=== PATIENT | female | born 1970 | race Caucasian/White ===

== ENCOUNTER → 2016-06-26 | Outpatient (CLI) | payer BC | END | disposition home or self-care (01) | LOC: RADMAMWWP 14:08 | PROVIDERS: ATTEND Obstetrics & Gynecology | DX: Z53.9 Procedure and treatment not carried out, unspecified reason (principal) ==

== ENCOUNTER 2016-09-06 19:28 | Observation (INO) | payer BC ==
[2016-09-06] MEDS ORDERED: diphenhydrAMINE 50 MG/ML 1 ML VIAL IVP STA (19:51)
[2016-09-06] MEDS ORDERED: ONDANSETRON 4 MG/2 ML VIAL IVP STA (19:51)
[2016-09-06] MEDS ORDERED: HYDROmorphone 1 MG/ML 1 ML SYRINGE IVP STA (19:51)
[2016-09-06] MEDS ORDERED: methylPREDNISolone SOD SUCCI 125 MG/2 ML VIAL IV STA (19:51)
[2016-09-06] MEDS ORDERED: FAMOTIDINE 20 MG/2 ML VIAL IV STA (19:51)
[2016-09-06] MEDS ORDERED: SODIUM CHLORIDE 0.9% 1,000 ML IV STA (19:51)
--- NOTE | 2016-09-06 19:59 | ED ---
General Adult HPI - General Chief complaint: Abdominal Pain Stated complaint: Abd Pain Time Seen by Provider: 09/06/16 19:41 Source: patient, family, RN notes reviewed Mode of arrival: ambulatory Limitations: no limitations - History of Present Illness Initial comments: Chief complaint and history of present illness a 46-year-old female who has abdominal pain. Patient had her last bowel movement yesterday and hasn't passed gas since yesterday. Today when she put her arms on her abdomen when she sat down she had an acute discomfort. Since then the pains persisted. Discomfort from her rib cage to the pelvic region and left and right side of the abdomen. No nausea no vomiting no diarrhea. Patient did have Mohan-en-Y surgery 8 years ago. - Related Data Home Medications Medication Instructions Recorded Confirmed Acetaminophen/Diphenhydramine 1 tab PO HS PRN 09/06/16 09/06/16 [Tylenol PM 500-25mg] DULoxetine HCL [Cymbalta] 60 mg PO DAILY 09/06/16 09/06/16 Ferrous Sulfate [Feosol] 325 mg PO TID 09/06/16 09/06/16 traZODone HCL 50 mg PO HS 09/06/16 09/06/16 Allergies Allergy/AdvReac Type Severity Reaction Status Date / Time shellfish derived [Shellfish] Allergy Anaphylaxis Verified 09/06/16 19:44 Review of Systems ROS Statement: Those systems with pertinent positive or pertinent negative responses have been documented in the HPI. Review of systems no headache or visual acuity changes no chest pain or shortness of breath. The patient has abdominal pain causing her to cry. No nausea no vomiting no diarrhea. Pain is scattered from the epigastric region to the suprapubic region into the left and right side of the abdomen. No mild palpation causes discomfort. Voluntary guarding noted. Active bowel sounds all systems reviewed Past medical problems significant for bariatric surgery 8 years ago patient had a Mohan-en-Y procedure. Patient's surgeries include knee arthroscopy. She's also cholecystectomy tonsils and adenoids. Family history no cancers. Patient has ALLERGIES to shellfish. She has had IV dye before but she was premedicated. Nonsmoker, occasional social alcohol use. ROS Other: All systems not noted in ROS Statement are negative. Past Medical History Past Medical History: No Reported History History of Any Multi-Drug Resistant Organisms: None Reported Past Surgical History: Bariatric Surgery Past Psychological History: No Psychological Hx Reported Smoking Status: Never smoker Past Alcohol Use History: Occasional Past Drug Use History: None Reported General Exam - General Exam Comments Initial Comments: General: The patient is awake and alert, moderate distress because of abdominal cramps and pain sharp stabbing sensation. Crusted entire abdomen. Vital signs shows temperature 98.0 pulse 75 respiratory rate 20 pulse ox on percent room air blood pressure 116/63 Eye: Pupils are equal, round and reactive to light, extra-ocular movements are intact ; there is normal conjunctiva bilaterally. No signs of icterus. Ears, nose, mouth and throat: There are moist mucous membranes and no oral lesions. Neck: The neck is supple, there is no tenderness . Cardiovascular: There is a regular rate and rhythm. No murmur, rub or gallop is appreciated. Respiratory: Lungs are clear to auscultation, respirations are non-labored, breath sounds are equal. No wheezes, stridor, rales, or rhonchi. Gastrointestinal: High tinkling sounds all around the abdomen. Tender with even mild palpation regardless of where you push. Voluntary guarding. No complaint of nausea vomiting or diarrhea Back: No complaint of back pain. Musculoskeletal: Normal ROM, no tenderness, There is no pedal edema. There is no calf tenderness or swelling. Sensation intact. v Neurological: No neuro deficits Skin: Skin is warm and dry and no rashes or lesions are noted. Tattoo left lateral calf Limitations: no limitations Course Vital Signs 09/06/16 09/06/16 09/06/16 19:30 20:34 22:00 Temperature 98 F 98.1 F Pulse Rate 75 78 Respiratory 20 16 18 Rate Blood Pressure 116/63 115/74 O2 Sat by Pulse 100 99 Oximetry 09/06/16 09/06/16 09/06/16 22:56 23:31 23:59 Temperature Pulse Rate 77 73 Respiratory 16 16 17 Rate Blood Pressure 116/77 105/65 O2 Sat by Pulse 98 99 Oximetry Medical Decision Making - Medical Decision Making Medical decision-making. The patient is here for acute abdominal pain. Labs show white count of 6.5 hemoglobin 9.6 hematocrit 33. Indices show evidence of anemia which the patient is being treated for. The patient's INR 1.1 potassium 4.6 with a BUN 11 creatinine 0.9 the GFR greater than 60. Glucose 80. Amylase / lipase within normal limits. Trays of the abdomen done and reviewed by radiologist his impression is there is no sign of intestinal obstruction or pneumoperitoneum. Fecal pattern is normal. There are clips from cholecystectomy. There are no pathologic calcifications over the kidneys. There is no sign of a mass. Lung bases are clear. Impression nonacute abdomen. As read by Dr. Fregsoo FH test the patient was reexamined and the discomfort became slightly less each time. Patient had a CT of the abdomen with IV and oral contrast she was premedicated. The patient's CT was interpreted by radiologist and her impression is #1; postsurgical changes of Mohan-en-Y gastric bypass surgery. Mild wall thickening versus under distention of the maria c-enteric anastomosis. No additional small bowel wall thickening. No evidence of small bowel obstruction or free air. Cecum located in the left upper quadrant possibly due to mobile cecum with internal hernia not excluded. 3 small hiatal hernia. Number for cholecystectomy. As read by Dr. Roca Examination after this was shared with the patient finds mild discomfort. No guarding no rebound. The patient will be admitted continued IV hydration and medications as directed for control of nausea and discomfort. The case is discussed with on-call general surgeon Dr. Aj. Patient be admitted his service. - Lab Data Result diagrams: 09/06/16 20:25 09/06/16 20:25 Lab Results 09/06/16 09/06/16 09/06/16 Range/Units 20:25 20:25 20:25 WBC 6.5 (3.8-10.6) k/uL RBC 4.27 (3.80-5.40) m/uL Hgb 9.6 L (11.4-16.0) gm/dL Hct 33.3 L (34.0-46.0) % MCV 78.1 L (80.0-100.0) fL MCH 22.5 L (25.0-35.0) pg MCHC 28.9 L (31.0-37.0) g/dL RDW 23.2 H (11.5-15.5) % Plt Count 396 (150-450) k/uL Neutrophils % 62 % Lymphocytes % 27 % Monocytes % 6 % Eosinophils % 1 % Basophils % 1 % Neutrophils # 4.1 (1.3-7.7) k/uL Lymphocytes # 1.7 (1.0-4.8) k/uL Monocytes # 0.4 (0-1.0) k/uL Eosinophils # 0.1 (0-0.7) k/uL Basophils # 0.1 (0-0.2) k/uL Hypochromasia Marked Anisocytosis Moderate Microcytosis Moderate PT (9.0-12.0) sec INR (<1.1) Sodium 138 (137-145) mmol/L Potassium 4.6 (3.5-5.1) mmol/L Chloride 103 (98-107) mmol/L Carbon Dioxide 22 (22-30) mmol/L Anion Gap 13 mmol/L BUN 11 (7-17) mg/dL Creatinine 0.90 (0.52-1.04) mg/dL Est GFR (MDRD) Af Amer >60 (>60 ml/min/1.73 sqM) Est GFR (MDRD) Non-Af >60 (>60 ml/min/1.73 sqM) Glucose 80 (74-99) mg/dL Plasma Lactic Acid Andi 0.7 (0.7-2.0) mmol/L Calcium 9.1 (8.4-10.2) mg/dL Total Bilirubin 0.2 (0.2-1.3) mg/dL AST 29 (14-36) U/L ALT 37 (9-52) U/L Alkaline Phosphatase 84 (38-126) U/L Total Protein 7.3 (6.3-8.2) g/dL Albumin 4.4 (3.5-5.0) g/dL Amylase 91 (30-110) U/L Lipase 239 (23-300) U/L Urine Color Urine Appearance (Clear) Urine pH (5.0-8.0) Ur Specific Mathews (1.001-1.035) Urine Protein (Negative) Urine Glucose (UA) (Negative) Urine Ketones (Negative) Urine Blood (Negative) Urine Nitrite (Negative) Urine Bilirubin (Negative) Urine Urobilinogen (<2.0) mg/dL Ur Leukocyte Esterase (Negative) 09/06/16 09/06/16 Range/Units 20:25 22:10 WBC (3.8-10.6) k/uL RBC (3.80-5.40) m/uL Hgb (11.4-16.0) gm/dL Hct (34.0-46.0) % MCV (80.0-100.0) fL MCH (25.0-35.0) pg MCHC (31.0-37.0) g/dL RDW (11.5-15.5) % Plt Count (150-450) k/uL Neutrophils % % Lymphocytes % % Monocytes % % Eosinophils % % Basophils % % Neutrophils # (1.3-7.7) k/uL Lymphocytes # (1.0-4.8) k/uL Monocytes # (0-1.0) k/uL Eosinophils # (0-0.7) k/uL Basophils # (0-0.2) k/uL Hypochromasia Anisocytosis Microcytosis PT 10.6 (9.0-12.0) sec INR 1.1 (<1.1) Sodium (137-145) mmol/L Potassium (3.5-5.1) mmol/L Chloride (98-107) mmol/L Carbon Dioxide (22-30) mmol/L Anion Gap mmol/L BUN (7-17) mg/dL Creatinine (0.52-1.04) mg/dL Est GFR (MDRD) Af Amer (>60 ml/min/1.73 sqM) Est GFR (MDRD) Non-Af (>60 ml/min/1.73 sqM) Glucose (74-99) mg/dL Plasma Lactic Acid Andi (0.7-2.0) mmol/L Calcium (8.4-10.2) mg/dL Total Bilirubin (0.2-1.3) mg/dL AST (14-36) U/L ALT (9-52) U/L Alkaline Phosphatase (38-126) U/L Total Protein (6.3-8.2) g/dL Albumin (3.5-5.0) g/dL Amylase (30-110) U/L Lipase (23-300) U/L Urine Color Light Yellow Urine Appearance Clear (Clear) Urine pH 5.5 (5.0-8.0) Ur Specific Mathews 1.006 (1.001-1.035) Urine Protein Negative (Negative) Urine Glucose (UA) Negative (Negative) Urine Ketones Negative (Negative) Urine Blood Negative (Negative) Urine Nitrite Negative (Negative) Urine Bilirubin Negative (Negative) Urine Urobilinogen <2.0 (<2.0) mg/dL Ur Leukocyte Esterase Negative (Negative) Disposition Clinical Impression: Abdominal pain Disposition: ADMITTED IP TO THIS HOSP Condition: Fair Referrals: Silvino Hobson DO [Primary Care Provider] - 1-2 days
[2016-09-06 20:39] LABS: Anisocytosis Moderate; Basophils # (A) 0.1 k/uL (0-0.2); Basophils % (A) 1 %; CH 22.6; Eosinophils # (A) 0.1 k/uL (0-0.7); Eosinophils % (A) 1 %; HCT 33.3 % (34.0-46.0); HDW 2.94; HGB 9.6 gm/dL (11.4-16.0); Hypochromasia Marked; Luc # (Auto) 0.18; Luc % (Auto) 3; Lymphocytes # (A) 1.7 k/uL (1.0-4.8); Lymphocytes % (A) 27 %; MCH 22.5 pg (25.0-35.0); MCHC 28.9 g/dL (31.0-37.0); MCV 78.1 fL (80.0-100.0); Mean Platelet Volume 6.2; Microcytosis Moderate; Monocytes # (A) 0.4 k/uL (0-1.0); Monocytes % (A) 6 %; Neutrophils # (A) 4.1 k/uL (1.3-7.7); Neutrophils % (A) 62 %; RBC 4.27 m/uL (3.80-5.40); RDW 23.2 % (11.5-15.5); WBC 6.5 k/uL (3.8-10.6); WBC (Perox) 6.14
[2016-09-06 20:55] LABS: ALT 37 U/L (9-52); AST 29 U/L (14-36); Alkaline Phosphatase 84 U/L (38-126); Amylase 91 U/L (30-110); Anion Gap 13 mmol/L; Blood Urea Nitrogen 11 mg/dL (7-17); Calcium 9.1 mg/dL (8.4-10.2); Carbon Dioxide 22 mmol/L (22-30); Chloride 103 mmol/L (98-107); Glucose 80 mg/dL (74-99); Non-African American GFR(MDRD) >60 (>60 ml/min/1.73 sqM); Potassium 4.6 mmol/L (3.5-5.1); Sodium 138 mmol/L (137-145); Total Bilirubin 0.2 mg/dL (0.2-1.3); Total Protein 7.3 g/dL (6.3-8.2)
--- NOTE | 2016-09-06 20:55 | XR ---
EXAMINATION TYPE: XR abdomen complete w decub DATE OF EXAM: 09/06/2016 COMPARISON: NONE HISTORY: Abdominal pain TECHNIQUE: Supine, upright, and left side down lateral decubitus views of the abdomen are obtained. FINDINGS: There is no sign of intestinal obstruction or pneumoperitoneum. Fecal pattern is normal. There are cl ips from cholecystectomy. There are no pathologic calcifications over the kidneys. There is no sign o f a mass. Lung bases are clear. IMPRESSION: Nonacute abdomen
[2016-09-06 21:06] LABS: INR 1.1 (<1.1); Prothrombin Time 10.6 sec (9.0-12.0)
[2016-09-06] MEDS ORDERED: RX INFO: IV CONTRAST WAS GIVEN 1 EACH MISC MISCELLANE PRN (21:37)
[2016-09-06] MEDS ORDERED: BARIUM SULFATE 450 ML ORAL.SUSP BOTTLE PO PRN (21:37)
[2016-09-06 22:27] LABS: Appearance,Urine Clear (Clear); Bilirubin,Urine Negative (Negative); Glucose,Urine (UA) Negative (Negative); Ketones,Urine Negative (Negative); Leukocyte Esterase,Urine Negative (Negative); Nitrite,Urine Negative (Negative); PH, Urine 5.5 (5.0-8.0); Protein,Urine Negative (Negative); Specific Gravity,Urine 1.006 (1.001-1.035); UA Billing (MACRO vs. MICRO) CHEM; Urobilinogen,Urine <2.0 mg/dL (<2.0)
--- NOTE | 2016-09-07 00:43 | CT ---
EXAM: CT Abdomen and Pelvis With Intravenous Contrast CLINICAL HISTORY: Abdominal pain, history Mohan-en-Y. TECHNIQUE: Axial computed tomography images of the abdomen and pelvis with intravenous and oral contrast. Coronal and sagittal reformatted images were created and reviewed. Delayed images were obtained. DOSE INFORMATION: CTDI is 19.50 mGy and DLP is 1415.60 mGy-cm. This CT exam was performed using one or more of the following dose reduction techniques: automated exposure control, adjustment of the mA and/or kV according to patient size, and/or use of iterative reconstruction technique. CONTRAST: 100 mL of Omnipaque 300 administered intravenously. COMPARISON: No relevant prior studies available. FINDINGS: Lower thorax: Small hiatal hernia. Otherwise unremarkable. ABDOMEN: Liver: Unremarkable. No mass. Gallbladder and bile ducts: Cholecystectomy. No biliary ductal dilation. Pancreas: Unremarkable. No ductal dilation. No mass. No adjacent inflammatory changes. Spleen: Unremarkable. No splenomegaly. Adrenals: Unremarkable. No mass. Kidneys and ureters: Unremarkable. No hydronephrosis or ureteral calculus. No solid mass. Stomach and bowel: Postsurgical changes of Mohan-en-Y gastric bypass surgery. No contrast in the excluded portion of the stomach. No evidence of transition point to suggest small bowel obstruction. Mild thickening versus underdistention at the enteroenteric anastomosis. No additional bowel wall thickening. Cecum located in the left upper quadrant. No pneumatosis. Appendix: Appendix not visualized. PELVIS: Bladder: Unremarkable. No mass or wall thickening. Reproductive: Unremarkable as visualized. ABDOMEN and PELVIS: Intraperitoneal space: Unremarkable. No free air. No significant fluid collection. Bones/joints: No acute fracture. No dislocation. Soft tissues: Unremarkable. Vasculature: Unremarkable. No aortic aneurysm. Lymph nodes: Unremarkable. No enlarged lymph nodes. IMPRESSION: 1. Postsurgical changes of Mohan-en-Y gastric bypass surgery. Mild wall thickening versus underdistention at the enteroenteric anastomosis. No additional bowel wall thickening. No evidence of small bowel obstruction or free air. 2. Cecum located in the left upper quadrant possibly due to mobile cecum with internal hernia not excluded. 3. Small hiatal hernia. 4. Cholecystectomy.
[2016-09-07] MEDS ORDERED: NALOXONE 0.4 MG/ML 1 ML VIAL IV PRN (01:05)
[2016-09-07] MEDS ORDERED: ONDANSETRON 4 MG/2 ML VIAL IVP PRN (01:05)
[2016-09-07] MEDS: SODIUM CHLORIDE 0.9% 1,000 ML IV SCH ×3 (01:33→17:30)
[2016-09-07] MEDS: HYDROmorphone 1 MG/ML 1 ML SYRINGE IV PRN ×2 (01:36→20:07)
[2016-09-07 02:14] VITALS: BMI 35.9
[2016-09-07] MEDS ORDERED: diphenhydrAMINE 25 MG CAP PO PRN (08:54)
[2016-09-07] MEDS ORDERED: MAGNESIUM CITRATE 296 ML BOTTLE PO ONE ×2 (08:55→12:53)
[2016-09-07] MEDS: DULoxetine HCL 60 MG CAPSULE.DR PO SCH (09:44)
[2016-09-07] MEDS: PANTOPRAZOLE 40 MG/10 ML VIAL IV SCH (09:44)
--- NOTE | 2016-09-07 12:58 | P.GSHP ---
History of Present Illness H&P Date: 09/07/16 A 46-year-old female presented on the day of admission to the emergency room with a chief complaint of developing "intense intolerable abdominal pain. Patient stated she had not experienced this type of intense abdominal pain before became concerned. Patient stated the pain started in the mid epigastric area radiates down to the pubic area described as intense cramping. Patient stated a nausea sensation but no vomiting. No frequent stooling. Patient stated her last bowel movement was 24 hours ago which the patient stated it was a small amount of stool no blood noted had been having constipation issues after being started on iron supplement iron deficiency anemia. Patient does have a history of having 8 years prior [facility] gastric bypass surgery for morbid obesity sarah-en-y patient states she's has not had a colonoscopy in the past. In the emergency room the patient underwent a CAT scan of the abdomen pelvis with IV contrast reviewing the report it showed postsurgical changes from the gastric bypass surgery no evidence of a small bowel obstruction or free air, small hiatal hernia, cholecystectomy, cecum located in the left upper quadrant possibly due to mobile cecum with an internal hernia not excluded urinalysis negative the white count on admission 6.5 with a hemoglobin of 9.6 patient has no significant past medical history except the patient states she's been treated prior deficiency anemia and has started iron supplements per her PCPs recommendations Past surgical history bariatric surgery cholecystectomy - Review of Systems Comment: Essentially unremarkable except as mentioned in the present illness Past Medical History Past Medical History: No Reported History History of Any Multi-Drug Resistant Organisms: None Reported Past Surgical History: Bariatric Surgery, Section, Cholecystectomy, Tonsillectomy Past Anesthesia/Blood Transfusion Reactions: No Reported Reaction Past Psychological History: Anxiety Smoking Status: Never smoker Past Alcohol Use History: Occasional Past Drug Use History: None Reported Medications and Allergies Home Medications Medication Instructions Recorded Confirmed Type Acetaminophen/Diphenhydramine 1 tab PO HS PRN 09/06/16 09/06/16 History [Tylenol PM 500-25mg] DULoxetine HCL [Cymbalta] 60 mg PO DAILY 09/06/16 09/06/16 History Ferrous Sulfate [Feosol] 325 mg PO TID 09/06/16 09/06/16 History traZODone HCL 50 mg PO HS 09/06/16 09/06/16 History Allergies Allergy/AdvReac Type Severity Reaction Status Date / Time shellfish derived [Shellfish] Allergy Anaphylaxis Verified 09/06/16 19:44 Surgical - Exam Vital Signs Temp Pulse Resp BP Pulse Ox 98 F 75 20 116/63 100 09/06/16 19:30 09/06/16 19:30 09/06/16 19:30 09/06/16 19:30 09/06/16 19:30 GENERAL APPEARANCE: Pleasant 46-year-old female patient is alert, oriented, in no acute distress. Patient states abdominal pain has improved it's not as intense as it was on admission. Patient did have the citrated mag no results yet states no bowel movement VITAL SIGNS: Reviewed HEENT: Head is normocephalic and atraumatic. Pupils are equal and reactive. The nares are patent. Oropharynx is clear without lesions. NECK: Supple without lymphadenopathy. Traches midline. HEART: S1, S2. Regular rate and rhythm. Denying chest pain LUNGS: No crackles or wheezes are heard. ABDOMEN: Soft, slight diffuse tenderness across the abdominal wall nondistended with good bowel sounds. No peritoneal signs. No palpable organomegaly or masses no nausea no vomiting. Patient states is not passing gas rectally no stool urinating no difficulty EXTREMITIES: Normal skin color and turgor. No cyanosis, rash, ulceration, clubbing or edema. Radial pedal pulses are 2/4 bilaterally. NEUROLOGICAL: No focal deficits. Strength and sensation are grossly intact. Results - Labs 09/06/16 20:25 09/06/16 20:25 Abnormal Lab Results - Last 24 Hours (Table) 09/06/16 Range/Units 20:25 Hgb 9.6 L (11.4-16.0) gm/dL Hct 33.3 L (34.0-46.0) % MCV 78.1 L (80.0-100.0) fL MCH 22.5 L (25.0-35.0) pg MCHC 28.9 L (31.0-37.0) g/dL RDW 23.2 H (11.5-15.5) % Diabetes panel 09/06/16 Range/Units 20:25 Sodium 138 (137-145) mmol/L Potassium 4.6 (3.5-5.1) mmol/L Chloride 103 (98-107) mmol/L Carbon Dioxide 22 (22-30) mmol/L BUN 11 (7-17) mg/dL Creatinine 0.90 (0.52-1.04) mg/dL Glucose 80 (74-99) mg/dL Calcium 9.1 (8.4-10.2) mg/dL AST 29 (14-36) U/L ALT 37 (9-52) U/L Alkaline Phosphatase 84 (38-126) U/L Total Protein 7.3 (6.3-8.2) g/dL Albumin 4.4 (3.5-5.0) g/dL Calcium panel 09/06/16 Range/Units 20:25 Calcium 9.1 (8.4-10.2) mg/dL Albumin 4.4 (3.5-5.0) g/dL Pituitary panel 09/06/16 Range/Units 20:25 Sodium 138 (137-145) mmol/L Potassium 4.6 (3.5-5.1) mmol/L Chloride 103 (98-107) mmol/L Carbon Dioxide 22 (22-30) mmol/L BUN 11 (7-17) mg/dL Creatinine 0.90 (0.52-1.04) mg/dL Glucose 80 (74-99) mg/dL Calcium 9.1 (8.4-10.2) mg/dL Adrenal panel 09/06/16 Range/Units 20:25 Sodium 138 (137-145) mmol/L Potassium 4.6 (3.5-5.1) mmol/L Chloride 103 (98-107) mmol/L Carbon Dioxide 22 (22-30) mmol/L BUN 11 (7-17) mg/dL Creatinine 0.90 (0.52-1.04) mg/dL Glucose 80 (74-99) mg/dL Calcium 9.1 (8.4-10.2) mg/dL Total Bilirubin 0.2 (0.2-1.3) mg/dL AST 29 (14-36) U/L ALT 37 (9-52) U/L Alkaline Phosphatase 84 (38-126) U/L Total Protein 7.3 (6.3-8.2) g/dL Albumin 4.4 (3.5-5.0) g/dL Assessment and Plan Plan: Impression Present on admission intractable abdominal pain unclear etiology History of chronic constipation Obesity BMI 35 History 8 years prior at [facility] gastric bypass surgery for morbid obesity sarah-en-y Present on admission anemia suspect iron deficiency on iron supplements Depressive disorder nonspecified Plan resume home meds as appropriate Repeat dose magnesium citrate 100 mL's now monitor the response IV fluid at her in our DVT and GI prophylaxis Further recommendations pending No evidence of an acute surgical abdomen The above dictated assessment and findings were discussed with dr peña . Impression and the plan of care have been dictated as directed. Roberta Arzola nurse practitioner acting as a scribe for dr peña
[2016-09-07] MEDS ORDERED: ACETAMINOPHEN TAB 325 MG TAB PO PRN (14:13)
--- NOTE | 2016-09-07 20:02 | P.PN ---
Subjective Principal diagnosis: Abdominal pain The patient is a 46-year-old female who reports in 2008 having a gastric bypass performed at [facility] by Dr. Briones. She reports poor follow-up whereby she only seen him 1 year after her initial operation. Her lowest weight 163 pounds. Height was 286 pounds. She reports weight regain. Separately she reports having a stricture which required balloon dilatation where she had intermittent dysphagia to solid foods. Today she reports recurrent symptoms of dysphagia as she has troubles with swallowing her pills. She was epigastric discomfort. Separately she reports a personal history of endometriosis for which she thought her symptoms of lower abdominal pain may be a result of. Since admission, she reports improvement of her abdominal pain. She reports "gurgling.". She is passing flatus however not moderate. I have been asked on behalf of Dr. Aj as a second opinion. Objective - Vital Signs Vital signs: Vital Signs Temp 98.5 F 09/07/16 15:43 Pulse 79 09/07/16 15:43 Resp 16 09/07/16 15:43 BP 99/54 09/07/16 15:43 Pulse Ox 98 09/07/16 15:43 Intake & Output 09/07/16 09/07/16 09/08/16 06:59 18:59 06:59 Weight 86.183 kg Other: Voiding Method Toilet # Voids 1 - Exam GENERAL: Well developed and in no acute distress. Pleasant and sitting up the chair appears comfortable. HEENT: No sclera icterus. Extraocular movements grossly intact. Moist buccal mucosa. Head is atraumatic, normocephalic. Hears conversational speech. No nasal drainage. NECK: Supple without lymphadenopathy. No JV distention. CHEST: Non-labored respirations and equal bilateral excursions. CARDIOVASCULAR: Regular rate and rhythm. Palpable 2+ radial pulses. ABDOMEN: Soft, nondistended. Mild tenderness along the bilateral lower abdomen. No peritoneal signs. MUSCULOSKELETAL: No clubbing, cyanosis or edema. NEUROLOGIC: No focal or lateralizing signs. PSYCH: Appropriate affect. Alert and oriented to person, place and time. - Labs CBC & Chem 7: 09/06/16 20:25 09/06/16 20:25 Labs: Abnormal Lab Results - Last 24 Hours (Table) 09/06/16 Range/Units 20:25 Hgb 9.6 L (11.4-16.0) gm/dL Hct 33.3 L (34.0-46.0) % MCV 78.1 L (80.0-100.0) fL MCH 22.5 L (25.0-35.0) pg MCHC 28.9 L (31.0-37.0) g/dL RDW 23.2 H (11.5-15.5) % Microbiology - Last 24 Hours (Table) 09/06/16 22:10 Urine Culture - Preliminary Urine,Voided - Imaging and Cardiology CT scan - abdomen: report reviewed, image reviewed CT scan - pelvis: report reviewed, image reviewed (No mesenteric swirl consistent with internal hernia. No free air. No bowel obstruction identified. ) Assessment and Plan (1) History of gastric bypass Status: Acute (2) Lower abdominal pain Status: Acute (3) Dysphagia Status: Acute (4) Epigastric abdominal pain Status: Acute (5) Gastrojejunal anastomotic stricture Status: Acute Plan: 1. As her symptoms are improving, recommend liquid diet preferably bariatric type. 2. With her previous history of stricture requiring balloon dilatation as well as recurrent symptoms of dysphagia, benefit from outpatient upper endoscopy with balloon dilatation. 3. I have discussed with her the importance of yearly bariatric follow-ups including potentially at [facility]. Alternatively, she is free to follow up at the [facility] bariatric center. 4. Should her abdominal pain worsen, then may benefit from a diagnostic laparoscopy however her abdominal pain is improving. 5. Recommend outpatient follow-up up including nutritional assessment.
[2016-09-07] MEDS ORDERED: traZODone HCL 50 MG TAB PO SCH (21:00)
[2016-09-08] MEDS: SODIUM CHLORIDE 0.9% 1,000 ML IV SCH (00:29)
[2016-09-08] MEDS ORDERED: ASPIRIN-ACET-CAFF 250-250-65MG 1 EACH TAB PO PRN (07:39)
[2016-09-08 07:45] LABS: Anisocytosis Moderate; Basophils % (A) 1 %; CH 22.2; CHCM 27.8; Eosinophils % (A) 1 %; HCT 29.6 % (34.0-46.0); HDW 2.87; HGB 8.6 gm/dL (11.4-16.0); Hypochromasia Marked; Luc # (Auto) 0.11; Luc % (Auto) 2; Lymphocytes # (A) 2.3 k/uL (1.0-4.8); Lymphocytes % (A) 52 %; MCH 23.1 pg (25.0-35.0); MCHC 28.9 g/dL (31.0-37.0); MCV 79.9 fL (80.0-100.0); Mean Platelet Volume 6.4; Microcytosis Moderate; Monocytes # (A) 0.2 k/uL (0-1.0); Monocytes % (A) 4 %; Neutrophils # (A) 1.8 k/uL (1.3-7.7); Neutrophils % (A) 41 %; RDW 23.2 % (11.5-15.5); WBC 4.4 k/uL (3.8-10.6); WBC (Perox) 4.46
[2016-09-08 07:47] LABS: ALT 23 U/L (9-52); AST 29 U/L (14-36); Alkaline Phosphatase 62 U/L (38-126); Anion Gap 5 mmol/L; Blood Urea Nitrogen 9 mg/dL (7-17); Calcium 7.6 mg/dL (8.4-10.2); Carbon Dioxide 24 mmol/L (22-30); Chloride 113 mmol/L (98-107); Glucose 75 mg/dL (74-99); Non-African American GFR(MDRD) >60 (>60 ml/min/1.73 sqM); Potassium 4.4 mmol/L (3.5-5.1); Sodium 142 mmol/L (137-145); Total Bilirubin 0.3 mg/dL (0.2-1.3); Total Protein 5.7 g/dL (6.3-8.2)
[2016-09-08 08:11] VITALS: RESP 14; TEMP 97.2
[2016-09-08] MEDS: PANTOPRAZOLE 40 MG/10 ML VIAL IV SCH (08:34)
[2016-09-08] MEDS: DULoxetine HCL 60 MG CAPSULE.DR PO SCH (08:34)
[2016-09-08 10:41] VITALS: BP 106/56; PULSE 65
[2016-09-08 11:48] LABS: Polychromasia Present
[2016-09-08 11:49] LABS: Manual Review Performed
--- NOTE | 2016-09-08 12:26 | P.DS ---
Providers Date of admission: 09/07/16 01:05 Expected date of discharge: 09/08/16 Attending physician: Sabine Peña Primary care physician: [facility] Course: A 46-year-old female presented on the day of admission to the emergency room with a chief complaint of developing "intense intolerable abdominal pain. Patient stated she had not experienced this type of intense abdominal pain before became concerned. Patient stated the pain started in the mid epigastric area radiates down to the pubic area described as intense cramping. Patient stated a nausea sensation but no vomiting. No frequent stooling. Patient stated her last bowel movement was 24 hours ago which the patient stated it was a small amount of stool no blood noted had been having constipation issues after being started on iron supplement iron deficiency anemia. Patient does have a history of having 8 years prior [facility] in [place] gastric bypass surgery for morbid obesity sarah-en-y patient states she's has not had a colonoscopy in the past. In the emergency room the patient underwent a CAT scan of the abdomen pelvis with IV contrast reviewing the report it showed postsurgical changes from the gastric bypass surgery no evidence of a small bowel obstruction or free air, small hiatal hernia, cholecystectomy, cecum located in the left upper quadrant possibly due to mobile cecum with an internal hernia not excluded urinalysis negative the white count on admission 6.5 with a hemoglobin of 9.6 patient has no significant past medical history except the patient states she's been treated prior deficiency anemia and has started iron supplements per her PCPs recommendations Past surgical history bariatric surgery and cholecystectomy Patient was seen this admission by Dr. Varghese for second opinion given patient's history of bariatric surgery and episodes intermittent dysphagia to solid food patient's bariatric surgery was done in 2008 at [facility] in [place] by a doctor alo Varghese indicated that patient can follow-up in the [facility] in which the patient is agreeing to follow-up with Dr. Varghese in the outpatient setting at the time of discharge patient was tolerating a full diet stated abdominal pain had significantly improved was anxious to be discharged home. felt to be hemodynamically stable and appropriate to proceed with a discharge to home Dr. Varghese did discuss with the patient the importance of yearly bariatric follow-up including potential returning to [facility]. Alternatively the patient is free to follow-up at the bariatric [facility] patient indicated that she would follow-up with Dr. Varghese patient setting Impression discharge diagnosis History of gastric bypass done in 2008 at [facility] in [place] by History of iron deficiency anemia on iron supplements Present on admission Lower abdominal pain Acute on chronic Intermittent episodes of Dysphagia with solid foods Status: Acute (4) Epigastric abdominal pain Status: Acute (5) Gastrojejunal anastomotic stricture Status: Acute Depressive disorder nonspecified Obesity BMI 35 The above dictated assessment and findings were discussed with dr peña. Impression and the plan of care have been dictated as directed. Roberta Arzola nurse practitioner acting as a scribe for dr peña Patient Condition at Discharge: Fair Plan - Discharge Summary New Discharge Prescriptions: Continue Ferrous Sulfate [Iron (65 MG Elemental)] 325 mg PO TID traZODone HCL 50 mg PO HS DULoxetine HCL [Cymbalta] 60 mg PO DAILY Acetaminophen/Diphenhydramine [Tylenol PM 500-25mg] 1 tab PO HS PRN PRN Reason: SLEEP Discharge Medication List Acetaminophen/Diphenhydramine [Tylenol PM 500-25mg] 1 tab PO HS PRN 09/06/16 [ History] DULoxetine HCL [Cymbalta] 60 mg PO DAILY 09/06/16 [History] Ferrous Sulfate [Iron (65 MG Elemental)] 325 mg PO TID 09/06/16 [History] traZODone HCL 50 mg PO HS 09/06/16 [History] Follow up Appointment(s)/Referral(s): Silvino Hobson DO [Primary Care Provider] - 1-2 days Fani Varghese MD [STAFF PHYSICIAN] - 1 Week Discharge Disposition: HOME SELF-CARE
== END 2016-09-08 13:13 | disposition home or self-care (01) ==
LOC: EC 19:28 → 3OBS 09-07 01:05
PROVIDERS: ADMIT Surgery; ATTEND Surgery
DX: R10.13 Epigastric pain (principal); Z98.84 Bariatric surgery status; R13.10 Dysphagia, unspecified; D50.9 Iron deficiency anemia, unspecified; F32.9 Major depressive disorder, single episode, unspecified; R11.0 Nausea; K59.09 Other constipation; K44.9 Diaphragmatic hernia without obstruction or gangrene; F41.9 Anxiety disorder, unspecified; Z88.8 Allergy status to other drugs, medicaments and biological substances; Z91.013 Allergy to seafood; Z90.49 Acquired absence of other specified parts of digestive tract; Z79.899 Other long term (current) drug therapy; E66.9 Obesity, unspecified; Z68.35 Body mass index [BMI] 35.0-35.9, adult
CPT/HCPCS: 96374 ×2; 96375 ×6; 96361 ×4; 96376 ×2; 99285 ×2; 96365; 96366; 36415; 80053 ×2; 82150; 83605; 83690; 85025 ×2; 85610; 81003; 87086; 74020; 74177; G0378 ×2; J1200; J2930; J2405; J1170 ×2; Q9967; C9113 ×2

== ENCOUNTER → 2016-09-17 | Outpatient (CLI) | payer BC | END | disposition home or self-care (01) | LOC: RADXRMAIN 17:36 | PROVIDERS: ATTEND Surgery Plastic and Reconstructive Surgery | DX: Z48.815 Encounter for surgical aftercare following surgery on the digestive system (principal); E66.01 Morbid (severe) obesity due to excess calories; E21.1 Secondary hyperparathyroidism, not elsewhere classified; E89.1 Postprocedural hypoinsulinemia; Z98.84 Bariatric surgery status; D50.8 Other iron deficiency anemias; E44.0 Moderate protein-calorie malnutrition; E55.9 Vitamin D deficiency, unspecified; K74.1 Hepatic sclerosis; N19 Unspecified kidney failure; K50.90 Crohn's disease, unspecified, without complications ==

== ENCOUNTER → 2017-05-05 | Outpatient (CLI) | payer BC ==
--- NOTE | 2017-05-07 07:22 | MM ---
Reason for exam: screening (asymptomatic). Last mammogram was performed 1 year and 11 months ago. History: Excisional biopsy of the left breast, 1991. Took hormonal contraceptives for 5 years. Taking estrogen. Taking progesterone. Physical Findings: A clinical breast exam by your physician is recommended on an annual basis and results should be correlated with mammographic findings. MG Screening Mammo w CAD Bilateral CC and MLO view(s) were taken. Prior study comparison: May 24, 2015, bilateral MG screening mammo w CAD. October 20, 2011, bilateral digital screening mammo w/CAD. There are scattered fibroglandular densities. No significant changes when compared with prior studies. ASSESSMENT: Benign, BI-RAD 2 RECOMMENDATION: Routine screening mammogram of both breasts in 1 year.
== END | disposition home or self-care (01) ==
LOC: RADMAMWWP 16:54
PROVIDERS: ATTEND Obstetrics & Gynecology
DX: Z12.31 Encounter for screening mammogram for malignant neoplasm of breast (principal)
CPT/HCPCS: 77067

== ENCOUNTER 2017-06-02 11:58 | Emergency (ER) | payer BC ==
[2017-06-02 12:06] VITALS: TEMP 97.2
[2017-06-02 12:59] VITALS: PULSE 77; RESP 18
[2017-06-02 13:00] LABS: Basophils % (A) 1 %; Eosinophils # (A) 0.1 k/uL (0-0.7); Eosinophils % (A) 1 %; HCT 24.9 % (34.0-46.0); HGB 7.2 gm/dL (11.4-16.0); Hypochromasia Marked; Lymphocytes # (A) 1.4 k/uL (1.0-4.8); Lymphocytes % (A) 33 %; MCH 20.7 pg (25.0-35.0); MCHC 28.7 g/dL (31.0-37.0); Mean Platelet Volume 6.4; Microcytosis Moderate; Monocytes # (A) 0.2 k/uL (0-1.0); Monocytes % (A) 6 %; Neutrophils # (A) 2.4 k/uL (1.3-7.7); Neutrophils % (A) 57 %; Platelet Count 479 k/uL (150-450); Poikilocytosis Slight; RBC 3.46 m/uL (3.80-5.40); WBC 4.3 k/uL (3.8-10.6)
[2017-06-02 13:14] LABS: ALT 18 U/L (9-52); AST 21 U/L (14-36); Albumin 3.9 g/dL (3.5-5.0); Alkaline Phosphatase 73 U/L (38-126); Anion Gap 10 mmol/L; Blood Urea Nitrogen 12 mg/dL (7-17); Calcium 9.3 mg/dL (8.4-10.2); Carbon Dioxide 25 mmol/L (22-30); Chloride 106 mmol/L (98-107); Glucose 73 mg/dL (74-99); Potassium 4.1 mmol/L (3.5-5.1); Sodium 141 mmol/L (137-145); Total Bilirubin 0.1 mg/dL (0.2-1.3); Total Protein 6.9 g/dL (6.3-8.2)
--- NOTE | 2017-06-02 13:35 | ED ---
General Adult HPI - General Chief complaint: Recheck/Abnormal Lab/Rx Stated complaint: LOW HEMOGLOBIN Time Seen by Provider: 06/02/17 12:33 Source: patient, RN notes reviewed, old records reviewed Mode of arrival: ambulatory Limitations: no limitations - History of Present Illness Initial comments: Patient is a 47-year-old female who presents emergency room today with a chief complaint of a low hemoglobin. Patient does admit that she was called by the family doctor advised coming to the emergency room. She states she had her labs drawn yesterday was 7.2 hemoglobin. She states that one week ago she was at 8.2. She states she has had a heavy menstrual cycle and vaginal bleeding over the last 2 months. She states it is somewhat slow down at this time. She states she has been trying follow-up with [facility]. She states she has an appointment in the next 2 weeks. She states in the meantime she's been following up the family doctor has been monitoring her. She does admit that she does feel somewhat tired after work. She states she's never had a blood transfusion. She states that she had a history of a gastric bypass does not take iron due to issues with constipation. Patient denies any bites or symptoms. Patient is scheduled to have a appointment with also hematology in the next 4 days. Patient denies any recent fever, chills, shortness of breath, chest pain, back pain, abdominal pain, nausea or vomiting, numbness or tingling , dysuria or hematuria, diarrhea, headaches or visual changes, or any other complaints. - Related Data Home Medications Medication Instructions Recorded Confirmed DULoxetine HCL [Cymbalta] 60 mg PO DAILY 09/06/16 06/02/17 traZODone HCL 50 mg PO HS PRN 09/06/16 06/02/17 Medroxyprogesterone Acetate 10 mg PO DIRECTED 06/02/17 06/02/17 [Provera] Multivitamins, Thera [Multivitamin 1 tab PO DAILY 06/02/17 06/02/17 (formulary)] Allergies Allergy/AdvReac Type Severity Reaction Status Date / Time shellfish derived [Shellfish] Allergy Rash/Hives Verified 06/02/17 12:24 Review of Systems ROS Statement: Those systems with pertinent positive or pertinent negative responses have been documented in the HPI. ROS Other: All systems not noted in ROS Statement are negative. Past Medical History Past Medical History: No Reported History Additional Past Medical History / Comment(s): anemia History of Any Multi-Drug Resistant Organisms: None Reported Past Surgical History: Bariatric Surgery, Section, Cholecystectomy, Tonsillectomy Additional Past Surgical History / Comment(s): knee scope Past Anesthesia/Blood Transfusion Reactions: No Reported Reaction Past Psychological History: Anxiety Smoking Status: Never smoker Past Alcohol Use History: Occasional Past Drug Use History: None Reported General Exam - General Exam Comments Initial Comments: General: The patient is awake and alert, in no distress, and does not appear acutely ill. Eye: Pupils are equal, round and reactive to light, extra-ocular movements are intact. No nystagmus. There is normal conjunctiva bilaterally. No signs of icterus. Ears, nose, mouth and throat: There are moist mucous membranes and no oral lesions. Neck: The neck is supple, there is no tenderness or JVD. Cardiovascular: There is a regular rate and rhythm. No murmur, rub or gallop is appreciated. Respiratory: Lungs are clear to auscultation, respirations are non-labored, breath sounds are equal. No wheezes, stridor, rales, or rhonchi. Gastrointestinal: Soft, non-distended, non-tender abdomen without masses or organomegaly noted. There is no rebound or guarding present. No CVA tenderness. Musculoskeletal: Normal ROM, no tenderness. Strength 5/5. Sensation intact. Pulses equal bilaterally 2+. Neurological: A&O x 3. CN II-XII intact, There are no obvious motor or sensory deficits. Coordination appears grossly intact. Speech is normal. Skin: Skin is warm and dry and no rashes or lesions are noted. Psychiatric: Cooperative, appropriate mood & affect, normal judgment. Limitations: no limitations Course Vital Signs 06/02/17 06/02/17 06/02/17 12:02 12:34 12:40 Temperature 97.2 F L Pulse Rate 89 77 Respiratory 18 20 18 Rate Blood Pressure 117/68 137/66 O2 Sat by Pulse 100 100 Oximetry Medical Decision Making - Medical Decision Making Patient's labs reviewed hemoglobin 7.2. Case was discussed with attending physician Dr. Tucker who did discuss the case with on-call [facility] doctor Alan who recommends the patient follow-up the next few days. At this time patient's hemoglobin stable. She states bleeding has decreased. Vitals are stable. Patient will be discharged home. Advised return if any symptoms increase or worsen. - Lab Data Result diagrams: 06/02/17 12:49 06/02/17 12:49 Lab Results 06/02/17 06/02/17 Range/Units 12:49 12:49 WBC 4.3 (3.8-10.6) k/uL RBC 3.46 L (3.80-5.40) m/uL Hgb 7.2 L (11.4-16.0) gm/dL Hct 24.9 L (34.0-46.0) % MCV 72.0 L (80.0-100.0) fL MCH 20.7 L (25.0-35.0) pg MCHC 28.7 L (31.0-37.0) g/dL RDW 16.0 H (11.5-15.5) % Plt Count 479 H (150-450) k/uL Neutrophils % 57 % Lymphocytes % 33 % Monocytes % 6 % Eosinophils % 1 % Basophils % 1 % Neutrophils # 2.4 (1.3-7.7) k/uL Lymphocytes # 1.4 (1.0-4.8) k/uL Monocytes # 0.2 (0-1.0) k/uL Eosinophils # 0.1 (0-0.7) k/uL Basophils # 0.0 (0-0.2) k/uL Hypochromasia Marked Poikilocytosis Slight Microcytosis Moderate Sodium 141 (137-145) mmol/L Potassium 4.1 (3.5-5.1) mmol/L Chloride 106 (98-107) mmol/L Carbon Dioxide 25 (22-30) mmol/L Anion Gap 10 mmol/L BUN 12 (7-17) mg/dL Creatinine 0.70 (0.52-1.04) mg/dL Est GFR (CKD-EPI)AfAm >90 (>60 ml/min/1.73 sqM) Est GFR (CKD-EPI)NonAf >90 (>60 ml/min/1.73 sqM) Glucose 73 L (74-99) mg/dL Calcium 9.3 (8.4-10.2) mg/dL Total Bilirubin 0.1 L (0.2-1.3) mg/dL AST 21 (14-36) U/L ALT 18 (9-52) U/L Alkaline Phosphatase 73 (38-126) U/L Total Protein 6.9 (6.3-8.2) g/dL Albumin 3.9 (3.5-5.0) g/dL Disposition Clinical Impression: Vaginal bleeding, Anemia Disposition: HOME SELF-CARE Condition: Good Instructions: Dysfunctional Uterine Bleeding (ED) Additional Instructions: Please follow-up with [facility] over the next 2 days as discussed. Please return here to emergency room if any symptoms increase or worsen or for any other concerns. Referrals: Silvino Hobson DO [Primary Care Provider] - 1-2 days Bjorn Dubon DO [Doctor of Osteopathic Medicine] - 1-2 days Time of Disposition: 14:16
[2017-06-02 15:00] VITALS: BP 128/66
== END 2017-06-02 15:16 | disposition home or self-care (01) ==
LOC: EC 11:58
DX: N93.9 Abnormal uterine and vaginal bleeding, unspecified (principal); D64.9 Anemia, unspecified; F41.9 Anxiety disorder, unspecified; Z79.899 Other long term (current) drug therapy; Z91.013 Allergy to seafood
CPT/HCPCS: 36415; 80053; 85025; 99284

== ENCOUNTER → 2017-06-07 | Outpatient (CLI) | payer BC ==
[2017-06-07 16:18] LABS: T4, Free (Free Thyroxine) 0.93 ng/dL (0.78-2.19)
== END | disposition home or self-care (01) ==
LOC: LABWHC1 15:13
PROVIDERS: ATTEND Obstetrics & Gynecology
DX: N92.0 Excessive and frequent menstruation with regular cycle (principal)
CPT/HCPCS: 36415; 82670; 83001; 83002; 84146; 84439; 84443

== ENCOUNTER → 2017-06-11 | Outpatient (CLI) | payer BC ==
--- NOTE | 2017-06-11 18:38 | US ---
EXAMINATION TYPE: US pelvic complete DATE OF EXAM: 06/11/2017 COMPARISON: CT CLINICAL HISTORY: N92.0 Excessive and frequent menstruation. Pt states continuous vaginal bleeding x 2 months TECHNIQUE: Transabdominal (TA). Transabdominal sonographic images of the pelvis were acquired. EXAM MEASUREMENTS: Uterus: 7.4 x 3.8 x 4.5 cm Endometrial Stripe: 1.0 cm Right Ovary: 4.8 x 3.0 x 2.6 cm Left Ovary: 2.6 x 2.4 x 1.6 cm 1. Uterus: Anteverted Heterogeneous 2. Endometrium: Slightly heterogeneous and measuring 1 cm. 3. Right Ovary: Three cysts: 1)= 2.8 x 2.0 x 2.0 cm 2)= 1.7 x 1.5 x 2.2 cm 3)= 1.8 x 1.8 x 2.1 cm 4. Left Ovary: follicles 5. Bilateral Adnexa: wnl 6. Posterior cul-de-sac: wnl IMPRESSION: 1. The endometrium is slightly heterogeneous and measures 1 cm correlate with phase of the patient's cycle otherwise consider endometrial disease. 2. Multiple right-sided renal cysts the largest measuring 2.8 cm has a simple appearance.
== END | disposition home or self-care (01) ==
LOC: RADUSWWP 16:24
PROVIDERS: ATTEND Obstetrics & Gynecology
DX: N28.1 Cyst of kidney, acquired (principal)
CPT/HCPCS: 76856

== ENCOUNTER → 2017-08-10 | Outpatient (CLI) | payer BC ==
--- NOTE | 2017-08-10 12:58 | US ---
EXAMINATION TYPE: US pelvic complete DATE OF EXAM: 08/10/2017 COMPARISON: US 06/11/2017 CLINICAL HISTORY: N83.20 PREV OVARIAN CYST. TECHNIQUE: 06/11/2017. Transabdominal sonographic images of the pelvis were acquired. Date of LMP: About 3 weeks ago EXAM MEASUREMENTS: Uterus: 7.3 x 3.5 x 4.2 cm Endometrial Stripe: 0.5 cm Right Ovary: 2.9 x 1.6 x 1.7 cm Left Ovary: 2.4 x 1.5 x 1.3 cm 1. Uterus: Anteverted wnl 2. Endometrium: wnl 3. Right Ovary: Two small anechoic areas visualized, largest measuring 1.3 x 1.3 x 1.3 cm 4. Left Ovary: wnl 5. Bilateral Adnexa: wnl 6. Posterior cul-de-sac: wnl IMPRESSION: 1. The previously seen right ovarian cyst has resolved in the interim with a dominant follicle measur ing 1.3 cm, physiologic. 2. Endometrial thickness has decreased in the interim and is within normal limits.
== END | disposition home or self-care (01) ==
LOC: RADUSWWP 09:18
PROVIDERS: ATTEND Obstetrics & Gynecology
DX: N83.202 Unspecified ovarian cyst, left side (principal)
CPT/HCPCS: 76856

== ENCOUNTER → 2017-10-07 | Outpatient (CLI) | payer BC ==
[2017-10-07 10:23] VITALS: BP 96/68; PULSE 79; RESP 20; TEMP 98.3; BMI 41.9
--- NOTE | 2017-10-07 11:20 | P.HPBAR ---
Bariatric H&P - History & Physicial H&P Date: 10/07/17 History & Physicial: Visit/CC: wt gain Patient initial contact: Initial weight: 99.019 kg Initial weight in pounds: 218.30 Height: 5 ft 0.5 in Initial BMI: 41.9 Last weight: Current weight: 99.019 kg Current weight in pounds: 218.30 Current BMI: 41.9 [place] body weight (based on NIH guidelines): 46.493 kg Excess body weight loss: 0.0% The patient is a 47 year-old F who presents for Bariatric Assessment. HPI: She comes in with chronic constipation and sever anemia requiring iron infusions. She has not seen a bariatric provider more than 3 years. She comes in for bariatric followup. She reports left lower quadrant abdominal pain. Her stools are soft. She has not had a colonoscopy. She had blood in the stools. She has family history of diverticulitis. ABDOMEN: PLAN: 1. Recommend colonoscopy. 2. Will need a check with CT of the abdomen and pelvis. 3. Follow up with bariatric dietitian. Past Medical History Past Medical History: No Reported History, Osteoarthritis (OA) Additional Past Medical History / Comment(s): anemia, ovarian cysts, chronic constipation (does not have hard BM's) but has slow motility, BM's 1-2x/wk., Insomnia, gestational DM x 3 PG (progressively worse with each PG, 3rd PG needed insulin), low back pain, Left knee pain, right foot/ankle pain History of Any Multi-Drug Resistant Organisms: None Reported Past Surgical History: Adenoidectomy, Bariatric Surgery, Section, Cholecystectomy, Orthopedic Surgery, Tonsillectomy Additional Past Surgical History / Comment(s): RnYeyo @ [facility] September 2008, c- section x1 (2 vaginal births to follow), L knee scope (secondary to fall), laparoscopic endometriosis cauterization 1993 Past Anesthesia/Blood Transfusion Reactions: No Reported Reaction Past Psychological History: Anxiety, Depression Additional Psychological History / Comment(s): Takes Cymbalta for depression Smoking Status: Never smoker Past Alcohol Use History: Occasional Past Drug Use History: None Reported - Past Family History Father Family Medical History: Coronary Artery Disease (CAD), Diabetes Mellitus, Hypertension, Renal Disease Additional Family Medical History / Comment(s): Type 2 DM, at age 64 from DM related heart problems Mother Family Medical History: Hypertension Surgical - Exam Vital Signs Temp Pulse Resp BP 98.3 F 79 20 96/68 10/07/17 10:19 10/07/17 10:19 10/07/17 10:19 10/07/17 10:19 Bariatric Checklist Checklist: Plan: Checklist: EGD: 1. Hiatal hernia: 2. H. Pylori: HgbA1c: Vitamin D: Smoking: Never smoker Primary care physician referral: moose Psychiatry clearance: Cardiology clearance: Sleep study: Diet journal: VTE risk score: VTE risk level: Rehab needs at discharge:
[2017-10-07 12:32] LABS: Anisocytosis Slight; HCT 41.8 % (34.0-46.0); MCH 30.5 pg (25.0-35.0); MCHC 33.6 g/dL (31.0-37.0); MCV 90.9 fL (80.0-100.0); Mean Platelet Volume 6.1; Platelet Count 410 k/uL (150-450); RBC 4.59 m/uL (3.80-5.40); RDW 16.4 % (11.5-15.5); WBC 6.6 k/uL (3.8-10.6)
[2017-10-07 12:48] LABS: ALT 25 U/L (9-52); AST 23 U/L (14-36); Albumin 4.2 g/dL (3.5-5.0); Alkaline Phosphatase 80 U/L (38-126); Anion Gap 9 mmol/L; Blood Urea Nitrogen 13 mg/dL (7-17); Carbon Dioxide 26 mmol/L (22-30); Chloride 104 mmol/L (98-107); Cholesterol 169 mg/dL (<200); Glucose 86 mg/dL (74-99); HDL Cholesterol 63 mg/dL (40-60); LDL Cholesterol,Calculated 84 mg/dL (0-99); Sodium 139 mmol/L (137-145); Total Bilirubin 0.3 mg/dL (0.2-1.3); Total Protein 7.3 g/dL (6.3-8.2); Triglycerides 112 mg/dL (<150)
[2017-10-07 18:39] LABS: Iron Saturation 32.79 (12.00-45.00)
[2017-10-07 18:44] LABS: Vitamin D 25 Hydroxy 24.8 ng/mL (30.0-100.0)
[2017-10-07 18:51] LABS: Folate, Serum 14.2 ng/mL
[2017-10-07 19:29] LABS: Hemoglobin A1C 5.4 % (4.0-6.0)
== END | disposition home or self-care (01) ==
LOC: BARWHC3 09:43
PROVIDERS: ATTEND Surgery Plastic and Reconstructive Surgery
DX: E88.81 Metabolic syndrome and other insulin resistance (principal); E66.01 Morbid (severe) obesity due to excess calories; D50.9 Iron deficiency anemia, unspecified; K59.09 Other constipation; R10.32 Left lower quadrant pain; K92.1 Melena; F32.9 Major depressive disorder, single episode, unspecified; F41.9 Anxiety disorder, unspecified; E55.9 Vitamin D deficiency, unspecified; E44.0 Moderate protein-calorie malnutrition; I11.9 Hypertensive heart disease without heart failure; G47.30 Sleep apnea, unspecified; Z98.84 Bariatric surgery status; Z90.49 Acquired absence of other specified parts of digestive tract; Z98.890 Other specified postprocedural states; Z90.89 Acquired absence of other organs; Z68.41 Body mass index [BMI] 40.0-44.9, adult
CPT/HCPCS: 36415; 80053; 80061; 82306; 82607; 82728; 82746; 83036; 83540; 83550; 84425; 84443; 85027; 93005; 99211

== ENCOUNTER 2017-12-01 09:14 | Day surgery (SDC) | payer BC ==
[2017-11-24 14:39] VITALS: BMI 41.5
[~2017-12-01 09:14] MED LIST: LACTATED RINGERS 1,000 ML IV SCH; LIDOCAINE 1% 20 ML VIAL (10MG/ML) FOR IV START INTRADERMA PRN
[2017-12-01 09:30] VITALS: RESP 18; TEMP 97.3
--- NOTE | 2017-12-01 09:57 | P.GSHP ---
History of Present Illness H&P Date: 12/01/17 CHIEF COMPLAINT: GERD and colon screen HISTORY OF PRESENT ILLNESS: The patient is a 47-year-old female who presents with gastroesophageal reflux disease and need for colon screen. Upper and lower endoscopy were offered for further evaluation and management. PAST MEDICAL HISTORY: Please see list. PAST SURGICAL HISTORY: Please see list. MEDICATIONS: Please see list. ALLERGIES: Please see list. SOCIAL HISTORY: No illicit drug use FAMILY HISTORY: No reports of Crohn disease or ulcerative colitis. REVIEW OF ORGAN SYSTEMS: CONSTITUTIONAL: No reports of fevers or chills. GI: Denies any blood in stools or constipation. PHYSICAL EXAM: VITAL SIGNS: Stable GENERAL: Well-developed pleasant in no acute distress. HEENT: No scleral icterus. Extraocular movements grossly intact. Moist buccal mucosa. NECK: Supple without lymphadenopathy. CHEST: Unlabored respirations. Equal bilateral excursions. CARDIOVASCULAR: Regular rate and rhythm. Distal 2+ pulses. ABDOMEN: Soft, nondistended. MUSCULOSKELETAL: No clubbing, cyanosis, or edema. ASSESSMENT: 1. Gastroesophageal reflux disease 2. Colon screen. PLAN: 1. Recommend proceeding with an upper and lower endoscopy Past Medical History Past Medical History: Osteoarthritis (OA) Additional Past Medical History / Comment(s): anemia, ovarian cysts, chronic constipation (does not have hard BM's) but has slow motility, BM's 1-2x/wk., Insomnia, gestational DM x 3 PG (progressively worse with each PG, 3rd PG needed insulin), low back pain, Left knee pain, right foot/ankle pain History of Any Multi-Drug Resistant Organisms: None Reported Past Surgical History: Adenoidectomy, Bariatric Surgery, Section, Cholecystectomy, Orthopedic Surgery, Tonsillectomy Additional Past Surgical History / Comment(s): Yash @ [facility] September 2008, c- section x1 (2 vaginal births to follow), L knee scope (secondary to fall), laparoscopic endometriosis cauterization 1993 Past Anesthesia/Blood Transfusion Reactions: Postoperative Nausea & Vomiting ( PONV) Smoking Status: Never smoker - Past Family History Father Family Medical History: Coronary Artery Disease (CAD), Diabetes Mellitus, Hypertension, Renal Disease Additional Family Medical History / Comment(s): Type 2 DM, at age 64 from DM related heart problems Mother Family Medical History: Hypertension Additional Family Medical History / Comment(s): Diverticulitis Medications and Allergies Home Medications Medication Instructions Recorded Confirmed Type DULoxetine HCL [Cymbalta] 60 mg PO DAILY 09/06/16 11/24/17 History traZODone HCL 50 mg PO HS PRN 09/06/16 11/24/17 History Multivitamins, Thera [Multivitamin 1 tab PO DAILY 06/02/17 11/24/17 History (formulary)] Control Lessina 1 tab PO DAILY 10/07/17 11/24/17 History Cyanocobalamin (Vitamin B-12) 1,000 mcg SUBLINGUAL DAILY 10/07/17 11/24/17 History [Vitamin B-12] Folic Acid 0.4 mg PO DAILY 10/07/17 11/24/17 History Allergies Allergy/AdvReac Type Severity Reaction Status Date / Time shellfish derived [Shellfish] Allergy Rash/Hives Verified 12/01/17 09:41 Surgical - Exam Vital Signs Temp Pulse Resp BP Pulse Ox 97.3 F L 81 18 125/77 99 12/01/17 09:29 12/01/17 09:29 12/01/17 09:29 12/01/17 09:29 12/01/17 09:29
[2017-12-01] MEDS ORDERED: PROPOFOL 10 MG/ML 20 ML VIAL IV ONE (10:25)
--- NOTE | 2017-12-01 11:01 | P.PCN ---
Date of Procedure: 12/01/17 Description of Procedure: PREOPERATIVE DIAGNOSIS: Dysphagia. s/p Mohan-en-y gastric bypass. Nausea with vomiting. Morbid obesity. POSTOPERATIVE DIAGNOSIS: Dysphagia. s/p Mohan-en-y gastric bypass. Nausea with vomiting. Gastrojejunal stricture without chronic ulcer without perforation Diaphragmatic hiatal hernia, sliding type OPERATION: Esophagogastrojejunoscopy with balloon dilatation from 18 to 20 mm. SURGEON: Fani Varghese MD ANESTHESIA: MAC. INDICATIONS: The patient is a 47-year-old female who presents with a history of dysphagia, gastric bypass including new-onset nausea and vomiting. Benefits and risks of the procedure were described. Informed consent was obtained. DESCRIPTION: The patient was brought into the endoscopy suite and laid in the left lateral decubitus position. After a timeout was confirmed, the procedure was initiated. An Olympus gastroscope was passed along the posterior oropharynx down to the distal esophagus where the squamocolumnar junction was unremarkable. The gastric pouch was entered. A gastrojejunal stricture of 18 mm was found as the adult gastroscope was 9.5 mm in size. A TxVia balloon dilator was placed through the scope. Final insufflation up to 20 mm was performed with a total of 2 minutes. The scope was advanced up to 60 cm from the incisors into the Mohan limb. The mucosa of the gastrojejunal anastomosis was intact. No gastrojejunal marginal ulcer was encountered. No full-thickness injury was encountered. The GI tract was desufflated. The patient tolerated the procedure well. FINDINGS: Squamocolumnar junction unremarkable at 32 cm. Stricture of approximately 18 mm encountered. No gastrojejunal ulceration encountered. Successful balloon dilatation to 20 mm. Diaphragmatic hiatus at 40 cm. Sliding hiatal hernia, 5 cm Gastric pouch 3 cm. RECOMMENDATIONS: Upper endoscopy as needed
--- NOTE | 2017-12-01 11:02 | P.PCN ---
Date of Procedure: 12/01/17 Description of Procedure: PREOPERATIVE DIAGNOSIS: Altered bowel function POSTOPERATIVE DIAGNOSIS: Altered bowel function OPERATION: Colonoscopy to the ileocecal valve and appendiceal orifice Colonoscopy with random biopsies SURGEON: Fani Varghese MD. ANESTHESIA: MAC. INDICATIONS: The patient is a 47-year-old female who presents for change in bowel habits. Benefits and risks were described and informed consent was obtained. DESCRIPTION OF PROCEDURE: The patient had undergone Gatorade, MiraLAX and Dulcolax prep. She had been brought into the operating room and laid in the left lateral decubitus position. After adequate intravenous sedation, the rectum was examined with 2% lidocaine jelly. No external hemorrhoids were encountered. The rectal tone was within normal limits. No lesions were palpated in the rectal vault. An Olympus colonoscope was advanced until the ileocecal valve and appendiceal orifice were clearly viewed. The prep was good with visualization of the mucosal folds. The scope was removed with visualization of each mucosal fold. No scattered diverticulosis was encountered. No colonic polyps were found. No evidence of focal colitis was found. Random biopsies were obtained throughout the colon for history of change in bowel habits. Retroflexion of the scope demonstrated no internal hemorrhoids without active bleeding or inflammation. The colon was desufflated. The patient had tolerated the procedure well. Withdrawal time was over 6 minutes. FINDINGS: No internal hemorrhoids No external prolapsed hemorrhoids. No scattered diverticulosis. No adenomatous polyps. No focal colitis. RECOMMENDATIONS: Lower endoscopy every as needed. Plan - Discharge Summary New Discharge Prescriptions: No Action traZODone HCL 50 mg PO HS PRN PRN Reason: Insomnia DULoxetine HCL [Cymbalta] 60 mg PO DAILY Multivitamins, Thera [Multivitamin (formulary)] 1 tab PO DAILY Cyanocobalamin (Vitamin B-12) [Vitamin B-12] 1,000 mcg SUBLINGUAL DAILY Folic Acid 0.4 mg PO DAILY Control Lessina 1 tab PO DAILY Discharge Medication List DULoxetine HCL [Cymbalta] 60 mg PO DAILY 09/06/16 [History] traZODone HCL 50 mg PO HS PRN 09/06/16 [History] Multivitamins, Thera [Multivitamin (formulary)] 1 tab PO DAILY 06/02/17 [History ] Control Lessina 1 tab PO DAILY 10/07/17 [History] Cyanocobalamin (Vitamin B-12) [Vitamin B-12] 1,000 mcg SUBLINGUAL DAILY [History] Folic Acid 0.4 mg PO DAILY 10/07/17 [History]
[2017-12-01 11:29] VITALS: BP 105/73; PULSE 74
== END 2017-12-01 11:51 | disposition home or self-care (01) ==
LOC: ORWHC2ENDO 09:14
PROVIDERS: ATTEND Surgery Plastic and Reconstructive Surgery
DX: K44.9 Diaphragmatic hernia without obstruction or gangrene (principal); K31.89 Other diseases of stomach and duodenum; R19.4 Change in bowel habit; Z98.84 Bariatric surgery status; E66.01 Morbid (severe) obesity due to excess calories; Z68.41 Body mass index [BMI] 40.0-44.9, adult; G47.00 Insomnia, unspecified; M19.90 Unspecified osteoarthritis, unspecified site; Z82.49 Family history of ischemic heart disease and other diseases of the circulatory system; Z79.3 Long term (current) use of hormonal contraceptives; Z79.899 Other long term (current) drug therapy; Z91.013 Allergy to seafood
CPT/HCPCS: 81025; 88305; 45380; 43245; J2704; 43249

== ENCOUNTER → 2017-12-15 | Outpatient (CLI) | payer BC ==
[2017-12-15 15:28] VITALS: BP 127/68; PULSE 78; TEMP 98; BMI 43.2
--- NOTE | 2017-12-15 16:05 | P.PN ---
Subjective Progress Note Date: 12/15/17 HPI: She reports has GERD that is getting worse. She reports constipation. Upper scope and lower scope. ABDOMEN: Mild epigastric pain PLAN: 1. Colonoscopy in 10 years 2. Large hiatal and recommend hiatal hernia repair 3. Also recommend dietitian visits. Objective - Vital Signs Vital signs: Vital Signs Temp 98 F 12/15/17 15:15 Pulse 78 12/15/17 15:15 Resp BP 127/68 12/15/17 15:15 Pulse Ox Intake & Output 12/14/17 12/15/17 12/15/17 18:59 06:59 18:59 Weight 102.058 kg
== END | disposition home or self-care (01) ==
LOC: BARWHC3 14:14
PROVIDERS: ATTEND Surgery Plastic and Reconstructive Surgery
DX: K21.9 Gastro-esophageal reflux disease without esophagitis (principal); K59.00 Constipation, unspecified; R10.13 Epigastric pain
CPT/HCPCS: 99211

== ENCOUNTER → 2018-01-21 | Outpatient (CLI) | payer BC | END | disposition home or self-care (01) | LOC: LABWHC1 16:42 | PROVIDERS: ATTEND Surgery Plastic and Reconstructive Surgery | DX: K44.9 Diaphragmatic hernia without obstruction or gangrene (principal) | CPT/HCPCS: 36415; 93005 ==

== ENCOUNTER → 2018-02-22 | Outpatient (CLI) | payer BC ==
[2018-02-22 17:47] LABS: HCT 43.3 % (34.0-46.0); HGB 14.3 gm/dL (11.4-16.0); MCH 31.8 pg (25.0-35.0); MCHC 32.9 g/dL (31.0-37.0); MCV 96.5 fL (80.0-100.0); Mean Platelet Volume 7.6; Platelet Count 421 k/uL (150-450); RBC 4.48 m/uL (3.80-5.40); RDW 12.8 % (11.5-15.5); WBC 8.4 k/uL (3.8-10.6)
== END ==
LOC: LABPAT 17:21
PROVIDERS: ATTEND Anesthesiology
DX: Z01.812 Encounter for preprocedural laboratory examination (principal); K44.9 Diaphragmatic hernia without obstruction or gangrene
CPT/HCPCS: 36415; 85027

== ENCOUNTER 2018-02-28 13:05 | Inpatient (IN) | payer BC ==
[2018-02-21 14:35] VITALS: BMI 43.0
--- NOTE | 2018-02-28 06:50 | P.GSHP ---
History of Present Illness H&P Date: 02/28/18 CHIEF COMPLAINT: Paraesophageal hiatal hernia with gastroesophageal reflux disease. HISTORY OF PRESENT ILLNESS: The patient is a 47-year-old female who presents with paraesophageal hiatal hernia and history of bariatric surgery. She has completed an upper endoscopy workup. Now she presents for surgical intervention. PAST MEDICAL HISTORY: Please see list. PAST SURGICAL HISTORY: Please see list. MEDICATIONS: Please see list. ALLERGIES: Please see list. SOCIAL HISTORY: No illicit drug use FAMILY HISTORY: No reports of Crohn disease or ulcerative colitis. REVIEW OF ORGAN SYSTEMS: CONSTITUTIONAL: No reports of fevers or chills. GI: Denies any blood in stools or constipation. PHYSICAL EXAM: VITAL SIGNS: Stable GENERAL: Well-developed pleasant and in no acute distress. HEENT: No scleral icterus. Extraocular movements grossly intact. Moist buccal mucosa. NECK: Supple without lymphadenopathy. CHEST: Unlabored respirations. Equal bilateral excursions. CARDIOVASCULAR: Regular rate and rhythm. Distal 2+ pulses. ABDOMEN: Soft, nondistended. No peritoneal signs. MUSCULOSKELETAL: No clubbing, cyanosis, or edema. SKIN: Well-perfused. Good skin turgor. ASSESSMENT: 1. Diaphragmatic paraesophageal hiatal hernia with severe gastroesophageal reflux disease. PLAN: 1. Recommend proceeding with a robotic paraesophageal hiatal hernia with possible mesh. 2. Benefits and risks of surgical intervention was discussed including possibility of open technique. 3. Inpatient hospitalization recommended of 2 nights 4. DVT prophylaxis. 5. Antibiotic prophylaxis. Past Medical History Past Medical History: Osteoarthritis (OA) Additional Past Medical History / Comment(s): anemia, ovarian cysts, chronic constipation (does not have hard BM's) but has slow motility, BM's 1-2x/wk., Insomnia, gestational DM x 3 PG (progressively worse with each PG, 3rd PG needed insulin), low back pain, Left knee pain, right foot/ankle pain History of Any Multi-Drug Resistant Organisms: None Reported Past Surgical History: Adenoidectomy, Bariatric Surgery, Section, Cholecystectomy, Orthopedic Surgery, Tonsillectomy Additional Past Surgical History / Comment(s): Yash @ [facility] September 2008, c- section x1 (2 vaginal births to follow), L knee scope (secondary to fall), laparoscopic endometriosis cauterization 1993 Past Anesthesia/Blood Transfusion Reactions: Postoperative Nausea & Vomiting ( PONV) Smoking Status: Never smoker - Past Family History Father Family Medical History: Coronary Artery Disease (CAD), Diabetes Mellitus, Hypertension, Renal Disease Additional Family Medical History / Comment(s): Type 2 DM, at age 64 from DM related heart problems Mother Family Medical History: Hypertension Additional Family Medical History / Comment(s): Diverticulitis Medications and Allergies Home Medications Medication Instructions Recorded Confirmed Type DULoxetine HCL [Cymbalta] 60 mg PO DAILY 09/06/16 02/21/18 History traZODone HCL 50 mg PO HS PRN 09/06/16 02/21/18 History Multivitamins, Thera [Multivitamin 1 tab PO DAILY 06/02/17 02/21/18 History (formulary)] Cyanocobalamin (Vitamin B-12) 1,000 mcg SUBLINGUAL DAILY 10/07/17 02/21/18 History [Vitamin B-12] Folic Acid 0.4 mg PO DAILY 10/07/17 02/21/18 History Norgestimate-Ethinyl Estradiol 1 each PO DAILY 02/21/18 02/21/18 History [Tri-Sprintec Tablet] Allergies Allergy/AdvReac Type Severity Reaction Status Date / Time shellfish derived [Shellfish] Allergy Rash/Hives Verified 02/21/18 14:28
[~2018-02-28 13:05] MED LIST changes: +ACETAMINOPHEN IV (For NPO) 1,000 MG in EMPTY BAG 1 BAG IVPB ONE; +BUPIVACAIN-EPI 0.25%-1:200,000 30 ML VIAL SQ ONE; +CHLORHEXIDINE GLUCONATE 15 ML CUP MUCOUS MEM ONE; +DEXAMETHASONE SOD PHOSPHATE 10 MG/ML 1 ML VIAL IV ONE; +HEPARIN SODIUM,PORCINE 5,000 UNIT/ML 1 ML VIAL SQ ONE; -LACTATED RINGERS 1,000 ML IV SCH; +MIDAZOLAM 2 MG/2 ML VIAL IV PRN; +ONDANSETRON 4 MG/2 ML VIAL IVP ONE; +PANTOPRAZOLE 40 MG/10 ML VIAL IV STA; +ceFAZolin IN SWFI 2 GM/20 ML SYRINGE IVP ONE; +fentaNYL (PF) 50 MCG/ML 2 ML AMP IV PRN
[2018-02-28] MEDS: LACTATED RINGERS 1,000 ML IV SCH ×2 (13:22→23:12)
[2018-02-28] MEDS ORDERED: ONDANSETRON 4 MG/2 ML VIAL IVP ONE (13:39)
[2018-02-28] MEDS ORDERED: ROCURONIUM BROMIDE 10 MG/ML 10 ML VIAL IV ONE (16:47)
[2018-02-28] MEDS ORDERED: fentaNYL (PF) 50 MCG/ML 2 ML AMP ONE (16:47)
[2018-02-28] MEDS ORDERED: LIDOCAINE 1% INJ 10MG/ML (20 ML MDV) ONE (16:47)
[2018-02-28] MEDS ORDERED: PROPOFOL 10 MG/ML 20 ML VIAL IV ONE (16:47)
[2018-02-28] MEDS ORDERED: NEOSTIGMINE 1 MG/ML 10 ML VIAL ONE (16:47)
[2018-02-28] MEDS ORDERED: GLYCOPYRROLATE 0.2 MG/ML 2 ML VIAL ONE (16:47)
[2018-02-28] MEDS ORDERED: ePHEDrine SULFATE/0.9% NACL/PF 50 MG/5 ML SYRINGE IV ONE (16:47)
[2018-02-28] MEDS ORDERED: MIDAZOLAM 2 MG/2 ML VIAL ONE (16:47)
[2018-02-28] MEDS ORDERED: BUPIVACAIN-EPI 0.25%-1:200,000 30 ML VIAL SQ ONE (17:36)
[2018-02-28] MEDS ORDERED: HYDROGEN PEROXIDE BOTTLE TOPICAL ONE (17:37)
[2018-02-28] MEDS ORDERED: LACTATED RINGERS 1,000 ML IV ONE (17:55)
[2018-02-28] MEDS ORDERED: HYDROmorphone 1 MG/ML 1 ML SYRINGE IVP ONE ×4 (19:00→19:35)
[2018-02-28 19:02] VITALS: RESP 16
[2018-02-28] MEDS ORDERED: MEPERIDINE 50 MG/ML SYRINGE IVP ONE (19:09)
[2018-02-28] MEDS ORDERED: ACETAMINOPHEN IV (For NPO) 1,000 MG in EMPTY BAG 1 BAG IVPB ONE (19:13)
[2018-02-28] MEDS ORDERED: NALOXONE 0.4 MG/ML 1 ML VIAL IV PRN (19:13)
[2018-02-28] MEDS ORDERED: diphenhydrAMINE 50 MG/ML 1 ML VIAL IVP PRN (19:13)
[2018-02-28] MEDS ORDERED: HYDROcodone/APAP 15 ML SOLUTION PO PRN (19:13)
--- NOTE | 2018-02-28 19:13 | P.OP ---
Date of Procedure: 02/28/18 Description of Procedure: DESCRIPTION OF PROCEDURE(S): SURGEON: TITUS ARCE MD PREOPERATIVE DIAGNOSES: 1. Gastroesophageal reflux disease. 2. Paraesophageal hiatal hernia, midline. 3. Epigastric abdominal pain 4. History of gastric bypass 5. Dysphagia 6. Morbid obesity due to excess calories, BMI 43.2 7. Depressive disorder 8. Insomnia 9. Osteoarthritis lower back 10. Osteoarthritis bilateral knees 11. Endometriosis 12. History of iron deficiency chronic anemia due to intestinal malabsorption POSTOPERATIVE DIAGNOSES: 1. Gastroesophageal reflux disease. 2. Paraesophageal hiatal hernia, midline. 3. Epigastric abdominal pain 4. History of gastric bypass 5. Dysphagia 6. Morbid obesity due to excess calories, BMI 43.2 7. Depressive disorder 8. Insomnia 9. Osteoarthritis lower back 10. Osteoarthritis bilateral knees 11. Endometriosis 12. History of iron deficiency chronic anemia due to intestinal malabsorption OPERATION: 1. Robotic-assisted da Melba Xi laparoscopic repair of incarcerated paraesophageal hiatal hernia, 5 x 6 cm, with [place] Biopatch A 8 x 8 cm. 2. Intraoperative esophagojejunoscopy ANESTHESIA: General with local anesthetic. ESTIMATED BLOOD LOSS: 5 mL SPECIMENS REMOVED: NONE COMPLICATIONS: None. FINDINGS: 1. Large midline paraesophageal hiatal hernia 5 x 6 cm requiring moderate dissection and mediastinum 2. Sarah-en-Y gastric bypass with sarah limb unremarkable, antegastric antecolic approach 3. Incarcerated gastric pouch into the mediastinum INDICATIONS: The patient is a 47-year-old female who presents with a symptomatic diaphragmatic hiatal hernia. Preoperative workup including upper endoscopy demonstrated 5+ cm hiatal hernia. Surgical intervention is sought. Benefits and risks including bleeding, infection, recurrence, dysphagia, injury to the lung, need for further surgery was described at length. Informed consent was obtained. DESCRIPTION: The patient was brought into the operating room and placed in supine position. Preoperatively she had received heparin subcutaneously for DVT prophylaxis. After general induction, the abdomen was prepped and draped in standard sterile fashion. The patient had previously voided prior to coming to the operating room. Ioban draping was placed along the abdomen. A timeout protocol was confirmed with the surgical team, for which the patient's name, procedure to be performed including DVT prophylaxis with bilateral SCDs, and preoperative antibiotics were also confirmed. A robotic da Melba Xi system was prepped and primed. At 15 cm from the xiphoid to just below the umbilicus, proposed port sites were marked with indelible marker along the left axillary line, left mid-clavicular line with each ports were marked 10 cm from each other. A 5 mm 0 degrees laparoscopic trocar entry was performed along the left upper quadrant. The abdomen was insufflated to 15 mmHg pressure she tolerated well. Diagnostic laparoscopy demonstrated no injury to bowel, viscera, or mesentery. No injury had occurred to the small bowel or viscera. Next, one 8 mm robotic port was placed along the right upper abdomen. An 8-mm port was were placed along the left lateral abdominal wall. The camera 8-mm port was maintained along the epigastrium via the hernia defect. Another 12 mm port was placed along the left upper abdominal wall after exchanging the 5 mm port. Please note that the ports were placed at least 20 cm away from the target anatomy. Care was taken to check that each robotic arm were safely away from collision with the bed or the patient. At the epigastrium, a median sized Magno liver retractor was placed under direct visualization with the [employer] Data Processing Consultant placed under the right shoulder of the patient. All robotic arms were used. The patient was repositioned in reverse Trendelenburg position at 14-degrees after lowering the bed. The robot was docked above the right side of the patient. Using a grasper for arm 3, a grasper for arm 1, including vessel sealer for arm 2, the robotic system was docked and primed as described. Instruments were interchanged by the press assistant and feeder. I had sat at the console. The gastrohepatic ligament was cleaved using a vessel sealer. Next, the phrenoesophageal ligament was mobilized and the distal esophagus was mobilized circumferentially. The left and right crura was identified. An midline hiatal hernia and sac involving the gastric pouch was found incarcerated into the mediastinum. Circumferentially, the hernia sac was excised and brought into the peritoneal cavity. Moderate dissection into the mediastinum was performed to release the esophagus into the abdominal cavity including exposure of the aorta. Care was taken to avoid any gastrotomy. The measured defect was consistent with 6 cm axial length and 5 cm in width. After dissection, the distal esophagus of 3 cm was brought into the abdominal cavity. Once the hiatus and crura was dissected, 2-0 VLOC suture was placed to reapproximate the diaphragmatic hiatus posteriorly. To buttress the repair, a [place] Biopatch A was prepared along the back table and cut in half of a lobo-hole fashion as to reinforce the repair as an underlay. The mesh was placed along the crural repair and tagged using horizontal mattress sutures using 2-0 VLOC. An Olympus gastroscope was passed through posterior oropharynx. Erosive esophagitis LA grade A was confirmed. The gastric pouch was entered into the sarah limb. The stomach had been desufflated. No evidence of leaks were found of the esophagus or stomach. The squamocolumnar junction and hiatus was placed at 40 cm from the incisors. The GI tract with desufflated. This concluded the endoscopic portion of the case. The robot was undocked from the patient. I re-scrubbed into the case. All instruments and pneumoperitoneum and specimens were evacuated from the abdominal cavity. Incisions were reapproximated using 4-0 Monocryl in an interrupted subcuticular fashion. Liquid glue was applied to the skin. Local anesthetic was infiltrated in all wounds for postop analgesia. Multiple intra-abdominal films were obtained. At the end of the procedure, needle, sponge, and instrument count was verified correct by the surgical appliances salesperson. The patient had tolerated the procedure well and was taken to the postanesthesia unit in stable condition. Intraoperative films were reviewed with the patient's family who was pleased with the level of care. Console time 59 minutes
[2018-02-28] MEDS ORDERED: SCOPOLAMINE 1.5MG/72HR PATCH TRANSDERM SCH (19:15)
[2018-02-28] MEDS: 0.9% NACL WITH KCL 20 MEQ/L 1,000 ML IV SCH (21:04)
[2018-02-28] MEDS: ALBUTEROL NEBULIZED 2.5 MG/3 ML INHALATION SCH (21:12)
[2018-02-28] MEDS: DEXAMETHASONE SOD PHOSPHATE 4 MG/ML 1 ML VIAL IV SCH ×2 (23:14→23:35)
--- NOTE | 2018-02-28 23:26 | P.PN ---
Progress Note - Text Progress Note Date: 02/28/18 She feels great! No nausea or vomiting. Pain is well controlled. Intra- operative findings described. May discharge tomorrow after esophagram
[2018-02-28] MEDS: AMPICILLIN-SULBACTAM 3 GM in SODIUM CHLORIDE 0.9% 100 ML IVPB SCH (23:34)
[2018-02-28] MEDS: HYOSCYAMINE ORAL DROPS 1.875 MG/15 ML BOTTLE PO SCH (23:35)
[2018-02-28] MEDS: METOCLOPRAMIDE 5 MG/ML 2 ML VIAL IVP SCH (23:35)
[2018-02-28] MEDS: SIMETHICONE 40 MG/0.6 ML DROPS 2,000 MG/30 ML BOTTLE PO SCH (23:35)
[2018-02-28] MEDS: ONDANSETRON 4 MG/2 ML VIAL IVP SCH (23:36)
[2018-03-01] MEDS: HYDROmorphone 1 MG/ML 1 ML SYRINGE IVP PRN ×3 (02:34→10:00)
[2018-03-01] MEDS: 0.9% NACL WITH KCL 20 MEQ/L 1,000 ML IV SCH (04:15)
[2018-03-01] MEDS: SIMETHICONE 40 MG/0.6 ML DROPS 2,000 MG/30 ML BOTTLE PO SCH ×2 (06:07→12:13)
[2018-03-01] MEDS: HYOSCYAMINE ORAL DROPS 1.875 MG/15 ML BOTTLE PO SCH ×2 (06:07→12:14)
[2018-03-01] MEDS: METOCLOPRAMIDE 5 MG/ML 2 ML VIAL IVP SCH ×2 (06:07→12:18)
[2018-03-01] MEDS: ONDANSETRON 4 MG/2 ML VIAL IVP SCH ×2 (06:07→12:22)
[2018-03-01] MEDS: DEXAMETHASONE SOD PHOSPHATE 4 MG/ML 1 ML VIAL IV SCH ×2 (06:07→12:15)
[2018-03-01] MEDS: AMPICILLIN-SULBACTAM 3 GM in SODIUM CHLORIDE 0.9% 100 ML IVPB SCH (06:07)
[2018-03-01 07:52] LABS: Basophils % (A) 0 %; Eosinophils % (A) 0 %; HCT 40.9 % (34.0-46.0); HGB 13.3 gm/dL (11.4-16.0); Lymphocytes # (A) 0.7 k/uL (1.0-4.8); Lymphocytes % (A) 11 %; MCH 31.2 pg (25.0-35.0); MCHC 32.4 g/dL (31.0-37.0); MCV 96.2 fL (80.0-100.0); Mean Platelet Volume 6.6; Monocytes # (A) 0.2 k/uL (0-1.0); Monocytes % (A) 3 %; Neutrophils # (A) 5.2 k/uL (1.3-7.7); Neutrophils % (A) 84 %; Platelet Count 337 k/uL (150-450); RBC 4.25 m/uL (3.80-5.40); RDW 12.5 % (11.5-15.5); WBC 6.2 k/uL (3.8-10.6)
[2018-03-01 07:58] LABS: Anion Gap 11 mmol/L; Blood Urea Nitrogen 8 mg/dL (7-17); Calcium 8.4 mg/dL (8.4-10.2); Carbon Dioxide 21 mmol/L (22-30); Chloride 106 mmol/L (98-107); Magnesium 1.8 mg/dL (1.6-2.3); Phosphorus 3.6 mg/dL (2.5-4.5); Potassium 5.8 mmol/L (3.5-5.1); Sodium 138 mmol/L (137-145)
[2018-03-01] MEDS ORDERED: 1: MVI, ADULT NO.4 WITH VIT K 10 ML, THIAMINE 100 MG, FOLIC ACID 1 MG, POTASSIUM CHLORID IV SCH ×6 (08:00)
[2018-03-01] MEDS: ALBUTEROL NEBULIZED 2.5 MG/3 ML INHALATION SCH ×3 (08:23→15:59)
[2018-03-01] MEDS ORDERED: ENOXAPARIN 40 MG/0.4 ML SYRINGE SQ SCH (09:00)
[2018-03-01] MEDS ORDERED: SODIUM CHLORIDE 0.9% 1,000 ML IV SCH (09:15)
--- NOTE | 2018-03-01 09:42 | FL ---
Single contrast esophagram EXAMINATION TYPE: FL esophagus cervic/pharynx DATE OF EXAM: 03/01/2018 9:29 AM COMPARISON: NONE CLINICAL HISTORY: POST OP HH REPAIR YESTERDAY, PT HAS SHELLFISH ALLERGY, THIN BARIUM USED, 35SEC FL T ELIF The patient ingested contrast without difficulty or delay. Noted are changes of Fernando fundoplicatio n. There is no evidence for leak. There is moderate luminal narrowing at the surgical site likely re lated to edema without significant obstruction. There is evidence of previous Mohan-en-Y. IMPRESSION: Post-surgical change of Fernando fundoplication without evidence for leak. Moderate luminal narrowing at the surgical site without significant obstruction.
[2018-03-01 12:44] VITALS: BP 113/71; PULSE 74; TEMP 97.5
--- NOTE | 2018-03-01 13:58 | P.PN ---
Progress Note - Text Progress Note Date: 03/01/18 Patient's esophagram reviewed however she is asymptomatic as she is tolerating diet per discussion with nurse. Patient clear for discharge with close follow- up as outpatient.
--- NOTE | 2018-03-01 13:58 | P.DS ---
<Fani Varghese - Last Filed: 03/01/18 13:58> Providers Date of admission: 02/28/18 13:05 Expected date of discharge: 03/01/18 Attending physician: Fani Varghese Primary care physician: Silvino Hobson Plan - Discharge Summary Discharge Rx Participant: Yes New Discharge Prescriptions: New Bisacodyl [Dulcolax] 5 mg PO DAILY PRN #10 tablet. PRN Reason: Constipation Ondansetron Odt [Zofran Odt] 4 mg PO Q8HR PRN #9 tab PRN Reason: Nausea Simethicone 40 mg/0.6 ml Drops [Mylicon Drops] 40 mg PO PCHS PRN #30 ml PRN Reason: Gas Continue traZODone HCL 50 mg PO HS PRN PRN Reason: Insomnia Multivitamins, Thera [Multivitamin (formulary)] 1 tab PO DAILY Cyanocobalamin (Vitamin B-12) [Vitamin B-12] 1,000 mcg SUBLINGUAL DAILY Folic Acid 0.4 mg PO DAILY Norgestimate-Ethinyl Estradiol [Tri-Sprintec Tablet] 1 each PO DAILY Discontinued DULoxetine HCL [Cymbalta] 60 mg PO DAILY Discharge Medication List traZODone HCL 50 mg PO HS PRN 09/06/16 [History] Multivitamins, Thera [Multivitamin (formulary)] 1 tab PO DAILY 06/02/17 [History ] Cyanocobalamin (Vitamin B-12) [Vitamin B-12] 1,000 mcg SUBLINGUAL DAILY [History] Folic Acid 0.4 mg PO DAILY 10/07/17 [History] Norgestimate-Ethinyl Estradiol [Tri-Sprintec Tablet] 1 each PO DAILY 02/21/18 [ History] Bisacodyl [Dulcolax] 5 mg PO DAILY PRN #10 tablet. 03/01/18 [Rx] Ondansetron Odt [Zofran Odt] 4 mg PO Q8HR PRN #9 tab 03/01/18 [Rx] Simethicone 40 mg/0.6 ml Drops [Mylicon Drops] 40 mg PO PCHS PRN #30 ml [Rx] Follow up Appointment(s)/Referral(s): Fani Varghese MD [STAFF PHYSICIAN] - 03/09/18 Patient Instructions/Handouts: Laparoscopic Hiatal Hernia Repair (DC) Activity/Diet/Wound Care/Special Instructions: No straws or carbonated beverages. May shower. No bathtub soaks. Liquid diet for 2 weeks until 03/14/18. Please cut, open, or crush medications larger than the size of a tic tac Discharge Disposition: HOME SELF-CARE <Roberta Arzola - Last Filed: 03/01/18 14:11> Hospital Course: 47-year-old female presented with periesophageal hiatal hernia. Patient has history of bariatric surgery. Patient presented to undergo surgical intervention for repair of the incarcerated periesophageal hiatal hernia done on February 28. Patient did have an esophagram after the procedure there showed no leak no significant obstruction. Patient was tolerating diet prescribed diet. Was felt to be appropriate to be discharged home. Impression discharge diagnosis Present on admission incarcerated periesophageal hiatal hernia Epigastric abdominal pain Morbid obesity due to excess calories BMI 43 Depressive disorder Osteoarthritis lower back bilateral knees Iron deficiency anemia due to intestinal malabsorption robotic-assisted da Melba Xi laparoscopic repair of incarcerated paraesophageal hiatal hernia, 5 x 6 cm, with [place] Biopatch A 8 x 8 cm. done on February History of prior gastric bypass The above impression and plan of care have been discussed and directed by signing physician. Roberta Arzola nurse practitioner acting as scribe for signing physician.
[2018-03-01] MEDS ORDERED: diphenhydrAMINE ELIXIR 25 MG/10 ML CUP PO PRN (14:58)
== END 2018-03-01 15:25 | disposition home or self-care (01) | DRG 327 ==
LOC: 2ORMAIN 13:05 → 6PED 18:54
PROVIDERS: ADMIT Surgery Plastic and Reconstructive Surgery; ATTEND Surgery Plastic and Reconstructive Surgery
PROC: 8E0W4CZ Robotic Assisted Procedure of Trunk Region, Percutaneous Endoscopic Approach (ICD-10-PCS; 2018-02-28)
PROC: 0DJ08ZZ Inspection of Upper Intestinal Tract, Via Natural or Artificial Opening Endoscopic (ICD-10-PCS; 2018-02-28)
PROC: 0BUT4JZ Supplement Diaphragm with Synthetic Substitute, Percutaneous Endoscopic Approach (ICD-10-PCS; principal; 2018-02-28 14:00)
DX: K44.0 Diaphragmatic hernia with obstruction, without gangrene (principal); K22.10 Ulcer of esophagus without bleeding; K90.9 Intestinal malabsorption, unspecified; Z68.41 Body mass index [BMI] 40.0-44.9, adult; E66.01 Morbid (severe) obesity due to excess calories; F32.9 Major depressive disorder, single episode, unspecified; G47.00 Insomnia, unspecified; K21.9 Gastro-esophageal reflux disease without esophagitis; M17.0 Bilateral primary osteoarthritis of knee; M47.9 Spondylosis, unspecified; D50.9 Iron deficiency anemia, unspecified; N80.9 Endometriosis, unspecified; Z79.899 Other long term (current) drug therapy; Z82.49 Family history of ischemic heart disease and other diseases of the circulatory system; Z83.3 Family history of diabetes mellitus; Z86.32 Personal history of gestational diabetes; Z98.84 Bariatric surgery status; Z84.1 Family history of disorders of kidney and ureter; Z83.79 Family history of other diseases of the digestive system; Z88.8 Allergy status to other drugs, medicaments and biological substances; Z91.013 Allergy to seafood; Z79.3 Long term (current) use of hormonal contraceptives; R13.10 Dysphagia, unspecified
CPT/HCPCS: 74210; 80051; 81025; 82310; 82565; 83735; 84100; 84520; 85025

== ENCOUNTER → 2018-03-09 | Outpatient (CLI) | payer BC ==
[2018-03-09 16:09] VITALS: BP 127/75; PULSE 84; TEMP 97.7; BMI 39.6
--- NOTE | 2018-03-09 16:27 | P.PN ---
Subjective Progress Note Date: 03/09/18 DATE OF SERVICE: 03/09/2018 REASON FOR VISIT: Status post hiatal hernia repair HISTORY OF PRESENT ILLNESS: Shante Ray is a 47-year-old female who reports gastroesophageal reflux disease despite having a gastric bypass. She is status post hiatal hernia repair from 02/28/2018. She feels great. Her reflux is resolved. She is less than 2 weeks out from her hiatal hernia repair. Today she comes in 213 pounds from 225 pounds in 3 months. Weight loss of 12 pounds in 3 months. At height of 5 feet 0.5 inches, her ideal body weight is 127 pounds. Her body mass index down from 43.3 to 40.9. PHYSICAL EXAM: VITAL SIGNS: Height 5 foot 0.5 inches, weight 213 pounds. BMI 40.9 Vital Signs Temp 97.7 F 03/09/18 16:03 Pulse 84 03/09/18 16:03 Resp BP 127/75 03/09/18 16:03 Pulse Ox GENERAL: Well-developed in no acute distress. HEENT: No scleral icterus. Extraocular movements grossly intact. Hears conversational speech. No nasal drainage. NECK: Supple without lymphadenopathy. CHEST: Nonlabored respirations with equal bilateral excursions. CARDIOVASCULAR: Regular rate and regular rhythm. Distal 2+ pulses. ABDOMEN: Obese, soft, nondistended. Incisions are clean, dry and intact MUSCULOSKELETAL: No clubbing, cyanosis. NEURO: No focal or lateralizing signs. Cranial nerves 2 through 12 grossly within normal limits. PSYCH: Appropriate affect. Alert and oriented to person, place and time. SKIN: Good skin turgor. Well perfused. ASSESSMENT: 1. Morbid obesity due to excess calories, BMI 43.3 down to 40.9 2. Depressive disorder 3. Insomnia 4. Gestational diabetes 5. Osteoarthritis lower back 6. Osteoarthritis bilateral knees 7. Ovarian cysts 8. Endometriosis 9. Rectal bleeding 10. History of anemia 11. Family history of diverticulitis 12. Left lower quadrant abdominal pain 13. Previous history of gastric bypass 14. Status post hiatal hernia repair 15. Dietary surveillance and counseling. PLAN: 1. Bariatric diet advised for post op hiatal hernia repair 2. Avoiding carbs advised as variation of Atkins diet for maximal weight loss Objective - Vital Signs Vital signs: Vital Signs Temp 97.7 F 03/09/18 16:03 Pulse 84 03/09/18 16:03 Resp BP 127/75 03/09/18 16:03 Pulse Ox Intake & Output 03/08/18 03/09/18 03/09/18 18:59 06:59 18:59 Weight 96.615 kg
== END | disposition home or self-care (01) ==
LOC: BARWHC3 14:31
PROVIDERS: ATTEND Surgery Plastic and Reconstructive Surgery
DX: Z48.815 Encounter for surgical aftercare following surgery on the digestive system (principal); K21.9 Gastro-esophageal reflux disease without esophagitis; E66.01 Morbid (severe) obesity due to excess calories; F32.9 Major depressive disorder, single episode, unspecified; G47.00 Insomnia, unspecified; O24.419 Gestational diabetes mellitus in pregnancy, unspecified control; N83.202 Unspecified ovarian cyst, left side; N80.9 Endometriosis, unspecified; R10.32 Left lower quadrant pain; K62.5 Hemorrhage of anus and rectum; D64.9 Anemia, unspecified; M47.9 Spondylosis, unspecified; M17.0 Bilateral primary osteoarthritis of knee; Z98.84 Bariatric surgery status; Z83.79 Family history of other diseases of the digestive system; Z71.3 Dietary counseling and surveillance; Z98.890 Other specified postprocedural states; Z3A.00 Weeks of gestation of pregnancy not specified; Z68.41 Body mass index [BMI] 40.0-44.9, adult
CPT/HCPCS: 99211

== ENCOUNTER → 2018-05-04 | Outpatient (CLI) | payer BC ==
[~2018-05-04] MED LIST changes: -ACETAMINOPHEN IV (For NPO) 1,000 MG in EMPTY BAG 1 BAG IVPB ONE; -BUPIVACAIN-EPI 0.25%-1:200,000 30 ML VIAL SQ ONE; -CHLORHEXIDINE GLUCONATE 15 ML CUP MUCOUS MEM ONE; +CYANOCOBALAMIN 1,000 MCG/ML 1 ML VIAL IM ONE; -DEXAMETHASONE SOD PHOSPHATE 10 MG/ML 1 ML VIAL IV ONE; -HEPARIN SODIUM,PORCINE 5,000 UNIT/ML 1 ML VIAL SQ ONE; -LIDOCAINE 1% 20 ML VIAL (10MG/ML) FOR IV START INTRADERMA PRN; -MIDAZOLAM 2 MG/2 ML VIAL IV PRN; -ONDANSETRON 4 MG/2 ML VIAL IVP ONE; -PANTOPRAZOLE 40 MG/10 ML VIAL IV STA; -ceFAZolin IN SWFI 2 GM/20 ML SYRINGE IVP ONE; -fentaNYL (PF) 50 MCG/ML 2 ML AMP IV PRN
[2018-05-04 13:03] VITALS: RESP 16; BMI 40.1
--- NOTE | 2018-05-04 13:45 | P.PN ---
Subjective Progress Note Date: 05/04/18 DATE OF SERVICE: 05/04/2018 REASON FOR VISIT: Status post hiatal hernia repair HISTORY OF PRESENT ILLNESS: Shante Ray is a 48-year-old female who is status post hiatal hernia repair from 02/28/2018. She is 2 months out. She has no more gastroesophageal reflux disease. She is on a Keto diet. She reports constipation. bandar she comes in 209 pounds from 213 pounds in 2 months. Weight loss of 4 pounds in 2 months. At height of 5 feet 0.5 inches, her ideal body weight is 127 pounds. Her body mass index down from 43.3 to 40.1. PHYSICAL EXAM: VITAL SIGNS: Height 5 foot 0.5 inches, weight 209 pounds. BMI 40.1 Vital Signs Temp 98.2 F 05/04/18 14:25 Pulse 80 05/04/18 14:25 Resp 16 05/04/18 14:25 BP 109/73 05/04/18 14:25 Pulse Ox GENERAL: Well-developed in no acute distress. HEENT: No scleral icterus. Extraocular movements grossly intact. Hears conversational speech. No nasal drainage. NECK: Supple without lymphadenopathy. CHEST: Nonlabored respirations with equal bilateral excursions. CARDIOVASCULAR: Regular rate and regular rhythm. Distal 2+ pulses. ABDOMEN: Obese, soft, nondistended. MUSCULOSKELETAL: No clubbing, cyanosis. NEURO: No focal or lateralizing signs. Cranial nerves 2 through 12 grossly within normal limits. PSYCH: Appropriate affect. Alert and oriented to person, place and time. SKIN: Good skin turgor. Well perfused. LABS: Reviewed with moderate Vit-B12 deficiency ASSESSMENT: 1. Morbid obesity due to excess calories, BMI 43.3 down to 40.1 2. Depressive disorder 3. Insomnia 4. Gestational diabetes 5. Osteoarthritis lower back 6. Osteoarthritis bilateral knees 7. Ovarian cysts 8. Endometriosis 9. Rectal bleeding 10. History of anemia 11. Family history of diverticulitis 12. Left lower quadrant abdominal pain 13. Previous history of gastric bypass 14. Status post hiatal hernia repair 15. Dietary surveillance and counseling. 16. Constipation 17. Vitamin B-12 deficiency PLAN: 1. Recommend fiber goal of 25 grams. 2. Recommend drink more water. 3. Okay with Atkins type diet. 4. Recommend Vitamin B-12 5. Re-check labs in July. Objective - Vital Signs Vital signs: Vital Signs Temp 98 F 05/04/18 13:00 Pulse 89 05/04/18 13:00 Resp 16 05/04/18 13:00 BP 120/86 05/04/18 13:00 Pulse Ox Intake & Output 05/03/18 05/04/18 05/04/18 18:59 06:59 18:59 Weight 94.801 kg
[2018-05-04 14:28] VITALS: BP 109/73; PULSE 80; TEMP 98.2
== END ==
LOC: BARWHC3 12:21
PROVIDERS: ATTEND Surgery Plastic and Reconstructive Surgery
DX: D51.9 Vitamin B12 deficiency anemia, unspecified (principal)
CPT/HCPCS: 99211; 96372; J3420

== ENCOUNTER → 2018-09-13 | Outpatient (CLI) | payer BC ==
--- NOTE | 2018-09-13 16:28 | CT ---
EXAMINATION TYPE: CT abdomen pelvis w con DATE OF EXAM: 09/13/2018 COMPARISON: CT 09/06/2016 HISTORY: Left flank pain and pelvic pain x 6 months +. CT DLP: 1533.9 mGycm Automated exposure control for dose reduction was used. TECHNIQUE: Helical acquisition of images from the lung bases through the pelvis have been completed. CONTRAST: Performed with Oral Contrast and with IV Contrast, patient injected with 100 mL of Isovue M300. FINDINGS: Postop changes are noted to the gastroesophageal junction, some thickening of the distal es ophagus is likely postoperative, suspect there is been gastric sleeve performed LUNG BASES: No significant abnormality is appreciated. AORTA: No significant abnormality is appreciated. LIVER/GB: No significant abnormality is appreciated, patient is post cholecystectomy. Mild prominence of biliary system likely due to postop change. PANCREAS: No significant abnormality is seen. SPLEEN: No significant abnormality is seen. ADRENALS: No significant abnormality is seen. KIDNEYS: No significant abnormality is seen. REPRODUCTIVE ORGANS: No significant abnormality is seen, there may be a small left ovarian cyst, ther e is a tampon in place BOWEL: Distended loop of jejunum is present in the left upper quadrant. Distention to a caliber of a pproximately 5.5 cm is noted on coronal image #44, axial image 34 shows a caliber of 5.9 cm, contrast hasn't coursed distal to this level. FREE AIR: No Free Air visible. ASCITES: None visible. PELVIC ADENOPATHY: None visualized. RETROPERITONEAL ADENOPATHY: No Retroperitoneal Adenopathy visible. URINARY BLADDER: No significant abnormality is seen. OSSEOUS STRUCTURES: No significant abnormality is seen. IMPRESSION: DILATION OF JEJUNAL LOOP COULD BE DUE TO A PARTIAL OBSTRUCTION, POSTOP CHANGE. POSSIBLE SMALL LEFT OV JUSTYN CYST.
== END | disposition home or self-care (01) ==
LOC: RADCTMAIN 14:13
PROVIDERS: ATTEND Family Medicine
DX: K59.8 Other specified functional intestinal disorders (principal); Z98.890 Other specified postprocedural states
CPT/HCPCS: 74177; Q9967

== ENCOUNTER → 2018-09-28 | Outpatient (CLI) | payer BC ==
--- NOTE | 2018-10-03 07:26 | MM ---
Reason for exam: screening (asymptomatic). Last mammogram was performed 1 year and 5 months ago. History: Excisional biopsy of the left breast, 1991. Took hormonal contraceptives for 5 years. Taking estrogen. Taking progesterone. Physical Findings: A clinical breast exam by your physician is recommended on an annual basis and results should be correlated with mammographic findings. MG Screening Mammo w CAD Bilateral CC and MLO view(s) were taken. Prior study comparison: May 05, 2017, bilateral MG screening mammo w CAD. May 24, 2015, bilateral MG screening mammo w CAD. There are scattered fibroglandular densities. No significant new finding since last study. ASSESSMENT: Negative, BI-RAD 1 RECOMMENDATION: Routine screening mammogram of both breasts in 1 year. Manage on a clinical basis the Left breast pain.
== END | disposition home or self-care (01) ==
LOC: RADMAMWWP 13:30
PROVIDERS: ATTEND Obstetrics & Gynecology
DX: Z12.31 Encounter for screening mammogram for malignant neoplasm of breast (principal)
CPT/HCPCS: 77067

== ENCOUNTER → 2018-10-05 | Outpatient (CLI) | payer BC ==
[2018-10-05 15:57] VITALS: BP 125/86; PULSE 81; RESP 16; TEMP 98.1; BMI 42.4
--- NOTE | 2018-10-05 16:41 | P.PN ---
Subjective Progress Note Date: 10/05/18 HPI: Comes in with weight gain and more so constipation of the left lower quadrant pain STUDIES: CT scan reviewed with left ovarian abscess and left upper quadrant loop dilation PLAN: 1. Recommend transvaginal ultrasound 2. Food diary for weight gain 3. She reports severe endometriosis 4. May need lysis of adhesion Objective - Vital Signs Vital signs: Vital Signs Temp 98.1 F 10/05/18 15:55 Pulse 81 10/05/18 15:55 Resp 16 10/05/18 15:55 BP 125/86 10/05/18 15:55 Pulse Ox Intake & Output 10/04/18 10/05/18 10/05/18 18:59 06:59 18:59 Weight 100.244 kg
== END ==
LOC: BARWHC3 15:36
PROVIDERS: ATTEND Surgery Plastic and Reconstructive Surgery
DX: R63.5 Abnormal weight gain (principal); K59.00 Constipation, unspecified; R10.32 Left lower quadrant pain; N70.92 Oophoritis, unspecified; K92.89 Other specified diseases of the digestive system
CPT/HCPCS: 99211

== ENCOUNTER → 2018-10-10 | Outpatient (CLI) | payer BC ==
--- NOTE | 2018-10-10 09:43 | US ---
EXAMINATION TYPE: US transvaginal DATE OF EXAM: 10/10/2018 COMPARISON: US, CT CLINICAL HISTORY: N83.0 Ovarian Cyst. Patient c/o left lateral abdominal pain; ; endometriosis wi th laparoscopies/cauterizations; C section x 1 TECHNIQUE: Transvaginal (TV). Transvaginal sonographic images were provided per physician's order. Date of LMP: 10/09/2018 EXAM MEASUREMENTS: Uterus: 6.8 x 5.2x 4.2 cm Endometrial Stripe: 0.5 cm Right Ovary: 2.3 x 1.1 x 1.0 cm Left Ovary: 3.1 x 2.3 x 1.6 cm 1. Uterus: Anteverted; multiple Nabothian Cysts noted in cervix with largest = 0.4 x 0.4 x 0.3cm; up per right myometrial cyst = 0.4 x 0.7 x 0.5cm; upper left hyperechoic, oval, solid mass is imaged= 0 .4 x 0.5 x 0.6cm 2. Endometrium: thickness is wnl for Day 2 LMP 3. Right Ovary: small follicles are seen 4. Left Ovary: multifollicular with largest simple follicle = 1.4 x 1.0 x 1.2cm. Spectral, color and waveform Doppler imaging shows good arterial and venous flow within the ovaries ; there is no evidence for ovarian torsion. 5. Bilateral Adnexa: wnl 6. Posterior cul-de-sac: wnl IMPRESSION: 1. A dominant follicle on the left has a simple appearance measuring 1.4 cm. 2. Upper left myometrium there is a small hyperechoic solid lesion measuring 6 mm too small to fully characterize and could be followed on a short-term basis. This was not definitively seen on the prior exam. Fatty small leiomyoma in the differential diagnosis. Other etiologies not excluded. Because th e lesion is too small to characterize recommend a 6 month follow-up.
== END | disposition home or self-care (01) ==
LOC: RADUSWWP 08:21
PROVIDERS: ATTEND Surgery Plastic and Reconstructive Surgery
DX: N83.00 Follicular cyst of ovary, unspecified side (principal); N85.8 Other specified noninflammatory disorders of uterus
CPT/HCPCS: 76830

== ENCOUNTER → 2019-08-23 | Outpatient (CLI) | payer BC ==
[2019-08-23 14:07] VITALS: BP 118/79; PULSE 83; RESP 16; TEMP 98.1
--- NOTE | 2019-08-23 14:27 | P.PN ---
Subjective Progress Note Date: 08/23/19 DATE OF SERVICE: 08/23/2019 REASON FOR VISIT: Status post gastric bypass HISTORY OF PRESENT ILLNESS: Shante Ray is a 48-year-old female who comes in with gastric bypass at an outside institution over 10 years ago. She was seeing a dietitian and was following instructions with her primary care doctor. She reports trouble with weigh loss. Her protein intake is subpar and less than 70 grams daily. She is concerned of recurrent hiatal hernia. She reports epigastric pain and right upper pain. She reports nausea. She has been lost to follow up for 1 year. She reports left lower quadrant abdominal pain including history of endometriosis. Her weight is 218 pounds from 221 pounds in 11 months. She has lost 3 pounds. At height of 5 feet 0.5 inches, her ideal body weight is 127 pounds. Her body mass index is 42.4. She is 91 pounds overweight. PAST MEDICAL HISTORY: 1. Morbid obesity, BMI 43.2 2. Depressive disorder 3. Insomnia 4. Gestational diabetes 5. Osteoarthritis lower back 6. Osteoarthritis bilateral knees 7. Ovarian cysts 8. Endometriosis 9. Iron deficiency anemia PAST SURGICAL HISTORY: 1. Gastric bypass, 2008 [facility] 2. Adenoidectomy 3. 4. Cholecystectomy 5. Tonsillectomy 6. Arthroscopy 7. Hiatal hernia surgery HOME MEDICATIONS: 1. Trazadone 2. control 3. Folic acid 4. Cymbalta 5. Multivitamin 6. Vitamin B12 ALLERGIES: Shellfish SOCIAL HISTORY: No active tobacco use. FAMILY HISTORY: Family history of morbid obesity. No lupus in the family. No reports of stomach or esophageal cancer. Family history of diabetes type 2. REVIEW OF ORGAN SYSTEMS: CONSTITUTIONAL: Her weight prior weight 225 pounds. At height of 5 feet 0.5 inches, her ideal body weight is 127 pounds. Her body mass index 43.2. HEENT: Denies any active troubles with vision or hearing. No troubles with swallowing. ENDOCRINE: Past diabetes. No hypothyroidism. CARDIOVASCULAR: No reports of palpitations or heart attacks or chest pain. RESPIRATORY: No daytime somnolence. No asthma. GI: Denies any bright red blood per rectum. No diarrhea or constipation. Has gastric esophageal reflux disease MUSCULOSKELETAL: Has lower back pain and joint pain. Has osteoarthritis of the knees. NEURO: No headaches. No seizure disorders. PSYCH: No depression or suicidal ideation. RHEUMATOLOGIC: No lupus. No rheumatoid arthritis. HEMATOLOGIC: Denies any abnormal bleeding or bruising. No personal history of DVTs. SKIN: No rash. No skin cancer. PHYSICAL EXAM: VITAL SIGNS: Height 5 foot 0.5 inches, weight 218 pounds. BMI 42.0 Vital Signs Temp 98.1 F 08/23/19 14:03 Pulse 83 08/23/19 14:03 Resp 16 08/23/19 14:03 BP 118/79 08/23/19 14:03 Pulse Ox GENERAL: Well-developed in no acute distress. HEENT: No scleral icterus. Extraocular movements grossly intact. Hears conversational speech. No nasal drainage. NECK: Supple without lymphadenopathy. CHEST: Nonlabored respirations with equal bilateral excursions. CARDIOVASCULAR: Regular rate and regular rhythm. Distal 2+ pulses. ABDOMEN: Obese, soft, nondistended. Mild epigastric pain MUSCULOSKELETAL: No clubbing, cyanosis. Gross strength 5/5 distal lower extr emities. NEURO: No focal or lateralizing signs. Cranial nerves 2 through 12 grossly within normal limits. PSYCH: Appropriate affect. Alert and oriented to person, place and time. SKIN: Good skin turgor. Well perfused. STUDIES: US of the gallbladder was reviewed with left ovarian cysts. ASSESSMENT: 1. Morbid obesity due to excess calories, BMI 43.2 2. Depressive disorder 3. Insomnia 4. Gestational diabetes 5. Osteoarthritis lower back 6. Osteoarthritis bilateral knees 7. Ovarian cysts 8. Endometriosis 9. Rectal bleeding 10. History of anemia 11. Family history of diverticulitis 12. Left lower quadrant abdominal pain 13. Previous history of gastric bypass 14. Left ovarian cyst 15. Medical supervised weight loss PLAN: 1. Recommend bariatric bearing grinder. 2. Recommend evaluation for binge eating disorder. 3. Recommend bariatric labs. 4. Recommend esophagram for hiatal hernia Objective - Vital Signs Vital signs: Vital Signs Temp 98.1 F 08/23/19 14:03 Pulse 83 08/23/19 14:03 Resp 16 08/23/19 14:03 BP 118/79 08/23/19 14:03 Pulse Ox - Labs CBC & Chem 7: 08/23/19 14:55 08/23/19 14:55
[2019-08-23 15:15] LABS: HCT 42.6 % (34.0-46.0); HGB 14.1 gm/dL (11.4-16.0); MCH 31.9 pg (25.0-35.0); MCHC 33.1 g/dL (31.0-37.0); MCV 96.5 fL (80.0-100.0); Mean Platelet Volume 6.9; Platelet Count 392 k/uL (150-450); RBC 4.42 m/uL (3.80-5.40); RDW 12.9 % (11.5-15.5); WBC 7.5 k/uL (3.8-10.6)
[2019-08-23 15:29] LABS: INR 0.9 (<1.2); Partial Thromboplastin Time 22.9 sec (22.0-30.0); Prothrombin Time 9.5 sec (9.0-12.0)
[2019-08-23 23:08] LABS: % Iron Saturation 27.52 (12.00-45.00); Albumin 4.1 g/dL (3.80-4.90); Albumin/Globulin Ratio 1.71 (1.60-3.17); Anion Gap 9.6 mmol/L (4.00-12.00); BUN/Creat Ratio 16.25 Ratio (12.00-20.00); Calcium 8.9 mg/dL (8.7-10.3); Carbon Dioxide 27.4 mmol/L (21.6-31.8); Chol/HDL Ratio 2.56; Globulin 2.4 g/dL (1.6-3.3); LDL Cholesterol,Calculated 69.4 mg/dL (0.0-131.0); Non-African American GFR(CKD) 87.2 (60.0-200.0); Phosphorus 3.1 mg/dL (2.4-5.1); Total Bilirubin 0.3 mg/dL (0.3-1.2); Total Protein 6.5 g/dL (6.2-8.2); VLDL Calculation 22.6 mg/dL (5.00-40.00)
[2019-08-23 23:16] LABS: Ferritin 166.9 ng/mL (10.0-291.0)
[2019-08-23 23:18] LABS: Folate, Serum 7.6 ng/mL
[2019-08-24 01:10] LABS: Hemoglobin A1C 5.4 % (4.0-6.0)
[2019-08-24 14:51] LABS: Zinc, Serum 51 ug/dL (60-130)
[2019-08-25 07:00] LABS: Vit B1(Thiamine) 69 ug/L (38-122)
[2019-08-25 10:42] LABS: Vitamin A 66 ug/dL (38-106)
[2019-08-26 23:27] LABS: Selenium 91 mcg/L (63-160)
== END | disposition home or self-care (01) ==
LOC: BARWHC3 13:36
PROVIDERS: ATTEND Surgery Plastic and Reconstructive Surgery
DX: Z48.815 Encounter for surgical aftercare following surgery on the digestive system (principal); E66.01 Morbid (severe) obesity due to excess calories; F32.9 Major depressive disorder, single episode, unspecified; G47.00 Insomnia, unspecified; O24.419 Gestational diabetes mellitus in pregnancy, unspecified control; M17.0 Bilateral primary osteoarthritis of knee; R10.32 Left lower quadrant pain; N80.9 Endometriosis, unspecified; K62.5 Hemorrhage of anus and rectum; Z86.2 Personal history of diseases of the blood and blood-forming organs and certain disorders involving the immune mechanism; N83.202 Unspecified ovarian cyst, left side; R63.4 Abnormal weight loss; Z83.79 Family history of other diseases of the digestive system; Z98.84 Bariatric surgery status; Z3A.00 Weeks of gestation of pregnancy not specified; Z83.49 Family history of other endocrine, nutritional and metabolic diseases; Z79.3 Long term (current) use of hormonal contraceptives; Z79.899 Other long term (current) drug therapy
CPT/HCPCS: 80053; 80061; 82306; 82525; 82607; 82728; 82746; 83036; 83540; 83550; 83735; 83970; 84100; 84134; 84255; 84425; 84443; 84590; 84630; 85027; 85610; 85730; 99211

== ENCOUNTER → 2019-08-28 | Outpatient (CLI) | payer BC ==
[2019-08-28 15:50] VITALS: BMI 44.2
== END | disposition home or self-care (01) ==
LOC: BARWHC3 14:12
PROVIDERS: ATTEND Surgery Plastic and Reconstructive Surgery
DX: E66.01 Morbid (severe) obesity due to excess calories (principal); Z68.41 Body mass index [BMI] 40.0-44.9, adult
CPT/HCPCS: 97803

== ENCOUNTER → 2019-09-07 | Outpatient (CLI) | payer BC ==
--- NOTE | 2019-09-07 12:45 | FL ---
EXAMINATION TYPE: FL barium swallow DATE OF EXAM: 09/07/2019 COMPARISON: None HISTORY: Dysphasia, history of hiatal hernia surgery and Mohan-en-Y TECHNIQUE: Single contrast technique is utilized to evaluate the esophagus. FINDINGS: Esophagus dilates to normal caliber has normal contour to the gastroesophageal junction. Ga stroesophageal junction opens to normal caliber. A few tertiary contractions are evident during the e xam. There is complete stripping the esophageal bolus the horizontal drinking position. In the overhead radiograph images there appears to be a self reducing sliding type hiatal hernia pres ent. Schatzki's ring is above the diaphragm. Distal esophagus is normal. Note is made of the patient's Mohan-en-Y with prompt spill through the small stomach into the proximal small bowel loops. No stenosis is identified. IMPRESSION: 1. Mild presbyesophagus. 2. Suspicion of a small self reducing hiatal hernia
== END | disposition home or self-care (01) ==
LOC: RADUSWWP 09:02
PROVIDERS: ATTEND Surgery Plastic and Reconstructive Surgery
DX: K22.8 Other specified diseases of esophagus (principal); K44.9 Diaphragmatic hernia without obstruction or gangrene
CPT/HCPCS: 74220

== ENCOUNTER → 2019-11-03 | Outpatient (CLI) | payer BC ==
[~2019-11-03] MED LIST changes: +CYANOCOBALAMIN 1,000 MCG/ML 1 ML VIAL IM NR; -CYANOCOBALAMIN 1,000 MCG/ML 1 ML VIAL IM ONE
[2019-11-03 11:38] VITALS: BP 109/76; PULSE 82; RESP 18; TEMP 97.9
== END | disposition home or self-care (01) ==
LOC: PROCWHC3 11:28
PROVIDERS: ATTEND Surgery Plastic and Reconstructive Surgery
DX: D51.9 Vitamin B12 deficiency anemia, unspecified (principal)
CPT/HCPCS: 96372; J3420

== ENCOUNTER → 2020-04-09 | Outpatient (CLI) | payer BC ==
--- NOTE | 2020-04-10 13:11 | MM ---
Reason for exam: screening (asymptomatic). Last mammogram was performed 1 year and 6 months ago. History: Excisional biopsy of the left breast, 1991. Took hormonal contraceptives for 5 years. Taking estrogen. Taking progesterone. Physical Findings: A clinical breast exam by your physician is recommended on an annual basis and results should be correlated with mammographic findings. MG Screening Mammo w CAD Bilateral CC and MLO view(s) were taken. XCCL view(s) were taken of the left breast. Prior study comparison: September 28, 2018, bilateral MG screening mammo w CAD. May 05, 2017, bilateral MG screening mammo w CAD. There are scattered fibroglandular densities. There is no discrete abnormality. ASSESSMENT: Negative, BI-RAD 1 RECOMMENDATION: Routine screening mammogram of both breasts in 1 year.
== END | disposition home or self-care (01) ==
LOC: RADMAMWWP 07:25
PROVIDERS: ATTEND Obstetrics & Gynecology
DX: Z12.31 Encounter for screening mammogram for malignant neoplasm of breast (principal)
CPT/HCPCS: 77067

== ENCOUNTER → 2021-01-06 | Outpatient (CLI) | payer BC ==
[2021-01-06 10:40] VITALS: BP 96/68; PULSE 84; RESP 18; TEMP 97.7
--- NOTE | 2021-01-06 11:08 | P.PAINCN ---
History of Present Illness - Reason for Consult Consult date: 01/06/21 - History of Present Illness This is an 50 years old female with a chronic history of severe neck pain with radiation to the upper extremity bilaterally, started 1 year ago, denies any initiating event and she reported that the intensity of the pain increased over the last 4 months, and is constant and increases with any activity associated with numbness and tingling sensation and is more prominent on the left side, is some weakness in her left upper extremity, she is done physical therapy, he had minimal benefit from it, she continues to use Tylenol and Motrin with minimal benefit , she continued to use soft neck collar at night. Past Medical History Past Medical History: Osteoarthritis (OA) Additional Past Medical History / Comment(s): anemia-hx iron infusions-currently under control per pt , ovarian cysts, occasional episodees of chronic constipation (does not have hard BM's) but has slow motility,., Insomnia, gestational DM x 3 PG (progressively worse with each PG, 3rd PG needed insulin), low back pain, Left knee pain, right foot/ankle pain; strabismus History of Any Multi-Drug Resistant Organisms: None Reported Past Surgical History: Adenoidectomy, Bariatric Surgery, Section, Cholecystectomy, Hernia Repair, Orthopedic Surgery, Tonsillectomy, Uterine Ablation Additional Past Surgical History / Comment(s): [facility] @ [facility] September 2008, c- section x1 (2 vaginal births to follow), L knee scope (secondary to fall), laparoscopic endometriosis cauterization 1993, hiatal hernia repair (February 2018) Past Anesthesia/Blood Transfusion Reactions: Postoperative Nausea & Vomiting (PONV) Past Psychological History: Anxiety, Depression Additional Psychological History / Comment(s): Takes Cymbalta for depression Smoking Status: Never smoker Past Alcohol Use History: Occasional Past Drug Use History: None Reported - Past Family History Father Family Medical History: Coronary Artery Disease (CAD), Diabetes Mellitus, Hypertension, Renal Disease Additional Family Medical History / Comment(s): Type 2 DM, at age 64 from DM related heart problems Mother Family Medical History: Hypertension Additional Family Medical History / Comment(s): Diverticulitis Medications and Allergies Home Medications Medication Instructions Recorded Confirmed Type traZODone HCL 50 mg PO HS PRN 09/06/16 01/03/21 History Zinc Gluconate [Zinc] 50 mg PO DAILY 11/03/19 01/03/21 History DULoxetine HCL [Cymbalta] 90 mg PO DAILY 11/22/19 01/03/21 History Cyanocobalamin [Vitamin B-12 1,000 mcg SQ QMONTHLY 01/03/21 01/03/21 History Injection] Medroxyprogesterone Acetate 150 mg IM DIRECTED 01/03/21 01/03/21 History [Depo-Provera] buPROPion HCL [Wellbutrin XL] 300 mg PO DAILY 01/03/21 01/03/21 History Allergies Allergy/AdvReac Type Severity Reaction Status Date / Time shellfish derived [Shellfish] Allergy Rash/Hives Verified 01/03/21 11:45 Physical Exam Vitals: Vital Signs Temp Pulse Resp BP Pulse Ox 01/06/21 10:35 97.7 F 84 18 96/68 99 Physical Examinations : -Constitutiona : Cooperative , not in acute distress . -HEENT : nech : supple , no Lymphadenopathy , normal thyroid size . : eyes : no ptosis , no icterus, no photophobia . - neurologic : Cranial nerve II to XII intact , no focal neurological deffecit . -psychatric : alert , oriented X 3 , appropriate affect , intact judgment and insight . -Lymphatic : no Lymphadenopathy . - musculoskeltal : Cervical Spine motor stregnth in the deltoid and biceps, normal right side , normal Left side motor stregnth biceps and the wrist extensors normal right side ,normal left side . motor stregnth in the triceps muscle . normal Right side , normal Left side deep tendon reflexes normal at the biceps , normal at Brachioradialis , normal at triceps. cervical facet loading test: Positive Bilaterally Spurling test= positive Right , positive left. Neck distraction test= positive Right , positive left. Christine sign= positive right, positive left . Dysesthesia in the lateral aspect of the humerus bilaterally Lumber spine moter stegnth lower extremities ,thigh and legs 5/5 Right side , 5/5 Left side Results Comments: MRI of the cervical spine cervical bulging disc disease at C3 4 and C 56,C67 , and cervical facet hypertrophy at the same levels Assessment and Plan Plan: Assessment and plan=1-Cervical radiculopathy. 2-cervical degenerative disc disease. 3-cervical spondylosis. Patient could benefit from cervical epidural steroid injection at C6 7 levels Time with Patient: Greater than 30 PQRS Measure Charge Sheet Measure #130: Documentation of Current Meds in Medical Chart: Patient's medications documented in chart Measure #226: Tobacco Use: Screen & Cessation Intervention: Pt not a tobacco user Measure #111: Pneumonia Vaccination: Pneumococcal vaccine NOT administered or previously given Measure #47: Advance Care Plan: Advance care planning discussed & documented, pt chose/unable to give Measure #412: Opioid Treatment Agreement: No documentation of signed opioid treatment agreement Measure #408: Opioid Therapy Follow-up Evaluation: Patient had NO f/u eval minimum every 3 months during opioid therapy Measure #317: Preventitive Care & Scrn High Bld Press & F/U: Normal blood pressure, f/u not required Measure #128: Body Mass Index (BMI) Screening & Follow-up: BMI documented ABOVE normal parameters - f/u documented Measure #131: Pain Assessment & Follow-up: Pain positive & plan documented, Follow-up scheduled Measure #431: Unhealthy Alcohol Use Preventative Care & Scrn: Patient not identified as an unhealthy alcohol user Mode of Arrival: Ambulatory - Pain Location Neck Non-Pharmacological Interventions: Heat, Home Exercise, Physical Therapy, Position/Reposition, Stretching Pharmacological Interventions: PRN Medication PQRS Narrative: Smoking Status Never smoker Blood Pressure 96/68 Pain Intensity [Neck] 6 Scale Used Numeric (1 - 10) Hx Alcohol Use (MH) Yes: occ. Home Medications: Ambulatory Orders traZODone HCL 50 mg PO HS PRN 09/06/16 Zinc Gluconate [Zinc] 50 mg PO DAILY 11/03/19 DULoxetine HCL [Cymbalta] 90 mg PO DAILY 11/22/19 Cyanocobalamin [Vitamin B-12 Injection] 1,000 mcg SQ QMONTHLY 01/03/21 Medroxyprogesterone Acetate [Depo-Provera] 150 mg IM DIRECTED 01/03/21 buPROPion HCL [Wellbutrin XL] 300 mg PO DAILY 01/03/21
== END ==
LOC: PNWHC3 10:20
PROVIDERS: ATTEND Specialist
DX: M47.22 Other spondylosis with radiculopathy, cervical region (principal); M50.10 Cervical disc disorder with radiculopathy, unspecified cervical region; M19.90 Unspecified osteoarthritis, unspecified site; F41.9 Anxiety disorder, unspecified; F32.9 Major depressive disorder, single episode, unspecified; Z79.899 Other long term (current) drug therapy; Z91.013 Allergy to seafood
CPT/HCPCS: 99211

== ENCOUNTER 2021-02-18 10:59 | Day surgery (SDC) | payer BC ==
[2021-01-31 11:49] VITALS: BMI 33.0
[~2021-02-18 10:59] MED LIST changes: -CYANOCOBALAMIN 1,000 MCG/ML 1 ML VIAL IM NR; +LACTATED RINGERS 1,000 ML IV SCH
[2021-02-18] MEDS: LACTATED RINGERS 1,000 ML IV SCH ×2 (11:24→12:05)
[2021-02-18 11:27] VITALS: TEMP 97.4
[2021-02-18] MEDS ORDERED: IOPAMIDOL M200 10 ML VIAL ONE (12:06)
[2021-02-18] MEDS ORDERED: fentaNYL (PF) 50 MCG/ML 2 ML AMP ONE (12:06)
[2021-02-18] MEDS ORDERED: MIDAZOLAM 2 MG/2 ML VIAL ONE (12:06)
[2021-02-18] MEDS ORDERED: DEXAMETHASONE SOD PHOSPHATE 10 MG/ML 1 ML VIAL ONE (12:06)
--- NOTE | 2021-02-18 12:26 | P.PCN ---
Date of Procedure: 02/18/21 Surgeon: Anastasia English Pathology: none sent Condition: stable Disposition: PACU Description of Procedure: PROCEDURE 1. Cervical epidural steroid injection under fluoroscopic guidance, C7-T1 left paramedian approach. 2. Cervical epidurogram. : PREOPERATIVE DIAGNOSIS: Cervical radiculopathy, cervical spondylosis without myelopathy POSTOPERATIVE DIAGNOSIS: : Same as above ANESTHESIA: Local anesthesia with 1% lidocaine and IV moderate conscious sedation with Versed and Fentanyl . EBL 0 PROCEDURE INDICATION: The patient with neck pain and radiculopathy unresponsive to conservative treatment consents for procedure. PROCEDURE DESCRIPTION / TECHNIQUE: The patient was seen and identified in the preoperative area. Risks, benefits, complications, including but not limited to infections ,bleeding , allergic reactions to the medications ,and not complete pain relief, and alternatives were discussed with the patient, the patient agreed to proceed with the procedure and signed the consent. Patient was taken to the OR and time out was completed. The patient was placed in the prone position on the procedure table. A pillow was placed under the patients chest to increase the flexion of the cervical spine . The cervical area was prepped and draped in the usual sterile fashion. Vital signs were closely monitored during the procedure. Conscious sedation was used during the procedure to decrease patients anxiety. Using anterior-posterior fluoroscopy, the C7-T1 interlaminar space was identified and the skin over this site was marked and then infiltrated with 1% lidocaine subcutaneously. Subsequently, a 20-gauge 3-1/2-inch Tuohy epidural needle was inserted and advanced toward the epidural space by means of loss of resistance to air technique and guided by AP and lateral fluoroscopy. The needle tip contacted the lamina of T1 vertebra first, then it was walked off bone and into the epidural space using the loss of to air and fluoroscopic guidance to identify the epidural space. The correct needle position in the epidural space was verified with the injection of 1 mL of the water soluble contrast dye Isovue and observing an excellent epidurogram with the epidural spread of the dye, after negative aspiration for blood and CSF and in the absence of paresthesias. Again after negative aspiration, 20 mg of Decadron was injected and a washout of epidurogram was seen. Needle was withdrawn intact, skin was cleansed, and bandages were applied. A copy of the needle placement picture was saved to the fluoroscopy machine.
[2021-02-18] MEDS ORDERED: IV FLUID CONTINUATION 1,000 ML IV ONE (12:28)
--- NOTE | 2021-02-18 12:35 | FL ---
Fluoroscopy HISTORY: Pain 4 seconds fluoroscopy time supplied to the referring clinician. 1 intraoperative C-arm images docume nt the procedure. See dictated report from anesthesia.
[2021-02-18 12:52] VITALS: BP 97/59; PULSE 72; RESP 16
== END 2021-02-18 13:01 | disposition home or self-care (01) ==
LOC: ORPAIN 10:59
PROVIDERS: ATTEND Anesthesiology
DX: M47.22 Other spondylosis with radiculopathy, cervical region (principal); F41.9 Anxiety disorder, unspecified; E66.9 Obesity, unspecified; Z68.33 Body mass index [BMI] 33.0-33.9, adult
CPT/HCPCS: 81025; 62321; J2250; J1100; J3010; Q9966

== ENCOUNTER → 2021-03-10 | Outpatient (CLI) | payer BC ==
[2021-03-10 10:48] VITALS: BP 136/80; PULSE 71; RESP 18; TEMP 98.2
--- NOTE | 2021-03-10 11:12 | P.PAINPG ---
Subjective Progress Note Date: 03/10/21 Principal diagnosis: Neck pain Ms. boggs is a 50-year-old pleasant female came to the [facility] pain clinic for postprocedure evaluation. Patient has ongoing pain for many years. She is actively working in the [employer]. She had cervical C7-T1 epidural injection on 02/18/2021 , with no pain relief. As per patient she is actively working sometimes making her pain worse. She is doing physical therapy, and exercises at home as tolerated. Patient describes pain is aching, throbbing, constant type of pain. Pain is not radiating below the shoulder area. Patient rated pain levels are 7 out of 10 in severity. With the help of medications pain levels are 6-7 out of 10 in severity. Activities making pain worse. Medications, resting, physical therapy helping in relieving patient's pain. Patient pain some days better than others. Overall activities decreased secondary to pain. Because of the pain sometimes patient is feeling lack of sleep, interest, and energy. Denied any side effects with the medications. Denied any bowel or bladder problems at this time. Patient is not using any walking aids. Patient denies any suicidal or homicidal ideations intent or plan. Patient denies any auditory or visual hallucinations. Patient denied any red flag symptoms related to pain. Objective - Vital Signs Vital signs: Vital Signs Temp 98.2 F 03/10/21 10:43 Pulse 71 03/10/21 10:43 Resp 18 03/10/21 10:43 BP 136/80 03/10/21 10:43 Pulse Ox 97 03/10/21 10:43 - Exam General: Well-developed, well-nourished, no acute distress HEENT: Normocephalic, and atraumatic Neck: Supple, no neck swelling Psychiatric: Appropriate mood, and affect [employer]IST: No focal neurological deficits Musculoskeletal: Upper extremity: Normal strength, and range of motion. Sensation grossly intact Lower extremity: Normal strength, normal range of motion Cervical spine: Paravertebral tenderness: Positive Cervical spine facet maria luz: Positive Cervical spine Spurling test: Negative Multiple trigger point positive over trapezius, and upper thoracic area - Constitutional Constitutional Comment(s): 13 point review of Systems , and symptoms negative for chest pain, shortness of breath, change in vision, change in weakness, abdominal pain, diarrhea, extreme fatigue, malaise, fever, skin changes, suicidal/homicidal ideas, bowel incontinence or bladder incontinence. Assessment and Plan Assessment: Cervical spondylosis without myelopathy Myofascial pain syndrome, and chronic pain syndrome Plan: #1 Diagnoses, prognosis, and multiple treatment options including but not limited to physical therapy, interventional therapy, adjunct medication therapy, narcotic medication, and surgical options were discussed with the patient. And all questions were answered to the patient's satisfaction. #2 treatment plan agreement : Patient was thoroughly discussed regarding the treatment options, alternatives, and importance of exercises as tolerated. Patient clearly understood. #3 Patient was counseled on importance of regular exercise. Including torito chi, aerobic exercises as tolerated. Which helps for chronic pain, and overall well- being. Patient also counseled regarding importance of weight control rolling chronic pain, and overall other health issues. By altering diet habits, minimizing santana gar intake, and processed foods helps in minimizing Inflammation. Also discussed with the patient regarding intermittent fasting. #4 investigations: MAPS- reviewed , urine drug test-reviewed #5 diagnostic tests: None #6 consultation : None # 7 interventional procedures: Cervical bilateral C4-C5, and C5-C6 medial branch block #1. Procedure, complications, alternatives discussed with the patient. #8 medications #1 Tylenol 500 mg by mouth every 8 hours as needed total dose not more than 2 g per day #2 Motrin 600 mg by mouth daily as needed from primary care physician #3 Cymbalta 90 mg from primary care physician Medication side effects, complications, long-term consequences discussed with the patient. Patient recommended to contact the pain clinic if noticed any issues with given medications. #9 morphine milligrams equivalents dose ( MME) per day: 0 from the pain clinic. # 10 TENS unit's, and percussion massage device #11 disposition: scheduled to follow up with pain clinic in 4 weeks duration. Time with Patient: Less than 30 PQRS Measure Charge Sheet Measure #130: Documentation of Current Meds in Medical Chart: Patient's medications documented in chart Measure #226: Tobacco Use: Screen & Cessation Intervention: Pt not a tobacco user Measure #111: Pneumonia Vaccination: Pneumococcal vaccine NOT administered or previously given Measure #47: Advance Care Plan: Advance care planning discussed & documented, pt chose/unable to give Measure #412: Opioid Treatment Agreement: No documentation of signed opioid treatment agreement Measure #408: Opioid Therapy Follow-up Evaluation: Patient had NO f/u eval minimum every 3 months during opioid therapy Measure #317: Preventitive Care & Scrn High Bld Press & F/U: Normal blood pressure, f/u not required Measure #128: Body Mass Index (BMI) Screening & Follow-up: BMI documented within normal parameters Measure #131: Pain Assessment & Follow-up: Pain positive & plan documented Measure #431: Unhealthy Alcohol Use Preventative Care & Scrn: Patient not i dentified as an unhealthy alcohol user Mode of Arrival: Ambulatory - Pain Location Neck Non-Pharmacological Interventions: Home Exercise, Ice, Physical Therapy, Stretching Pharmacological Interventions: Epidural, PRN Medication PQRS Narrative: Smoking Status Never smoker Blood Pressure 136/80 Pain Intensity [Neck] 6 Scale Used Numeric (1 - 10) Hx Alcohol Use (MH) Yes: occ. Home Medications: Ambulatory Orders traZODone HCL 50 mg PO HS PRN 09/06/16 DULoxetine HCL [Cymbalta] 90 mg PO DAILY 11/22/19 Cyanocobalamin [Vitamin B-12 Injection] 1,000 mcg SQ QMONTHLY 01/03/21 Medroxyprogesterone Acetate [Depo-Provera] 150 mg IM DIRECTED 01/03/21 buPROPion HCL [Wellbutrin XL] 300 mg PO DAILY 01/03/21 Vit.D3,Calcium,Zinc,Magnesium 3 tab PO DAILY 01/31/21 Acetaminophen [Tylenol Extra Strength] 1,000 mg PO DIRECTED PRN 03/06/21 Ibuprofen [Motrin Ib] 600 mg PO DIRECTED PRN 03/06/21 Controlled Substance Measures - Controlled Substance Measures Is patient prescribed a controlled substance at discharge?: No
== END ==
LOC: PNWHC3 10:08
DX: M47.812 Spondylosis without myelopathy or radiculopathy, cervical region (principal); M79.18 Myalgia, other site; G89.4 Chronic pain syndrome; Z91.013 Allergy to seafood
CPT/HCPCS: 99211

== ENCOUNTER → 2021-04-14 | Outpatient (CLI) | payer BC ==
[2021-04-14 12:32] VITALS: BP 117/63; PULSE 79; RESP 18; TEMP 98
--- NOTE | 2021-04-14 13:02 | P.PN ---
Subjective Progress Note Date: 04/14/21 Principal diagnosis: A 51 yr old female with a history of severe and neck pain secondary to cervical degenerative disc diseases with facet arthropathy presents today for a follow up of a MBB of the C4-C5 and C5-C6. Pt stated she had <25% pain relief with the procedure. Pain level is 6 /10 in intensity, dull/ achy in character, but sometimes has a "pinching", stabbing/ sharp/ shooting towards the shoulders bilaterally. Pain is provoked by turning her head. Pain is alleviated with medications, topical ointments, use of an inflatable cervical traction device, sleep with a soft cervical collar, use of a massage gun, physical therapy, massage, rest and home based exercise regimen. Interventional pain procedures completed include MBBs of BL C4-C5, C5-C6 Patient denies any side effects of the medication(s), denies excessive drowsiness or sleepiness, denies suicidal ideation and reports that the current pain medication is helping to control the pain and improve activities of daily living. Patient denies any motor or sensory deficits. Patient denies any fever or night sweats, denies any change in the bowel movements or urination. Physical Examination: -Constitutional: Cooperative. Not in acute distress . -HEENT: Neck is supple. No lymphadenopathy. No thyromegaly. Normal thyroid size. Eyes: No ptosis , no icterus, no photophobia. ENT: No auditory deficits. Normal oropharynx. No Thrush. - Respiratory: Chest clear to auscultations bilaterally. No wheezing. No rhonchi. - Cardiovascular: Regular rate and rhythm. S1 / S2 , no S3 , no S4. - Gastrointestinal: Abdomen soft no tenderness. Bowel sounds positive in all four quadrants. No organomegaly. - Genitourinary: Deferred. - Neurologic: Cranial nerve II to XII intact. No focal neurological deficits. - Psychatric: Alert & oriented x 3. Matching mood & appropriate affect. Judgment and insight intact. - Lymphatic: No Lymphadenopathy. - Musculoskeletal: Cervical spine: Muscle bulk/ tone/ strength in the bilateral upper extremities n ormal. Mild tenderness to palpation over the bilateral GONs No pain over the LONs bilaterally Spurling test positive Distraction test positive Facet loading test cervical area positive. Lumbar spine: Motor bulk/ tone/ strength lower extremities , thigh and legs : 5/5 Deep tendon reflexes : Normal Knee Jerk. Normal Ankle Jerk . Lumbar Facet Loading Test positive Straight Leg Raise: positive at 30 degree right side/ left side Domenica test: positive right side / left side Range of motion: Range of motion in flexion of the lumbar spine <60 degrees Range of motion: Extension of the lumbar spine <20 degrees Severe tenderness over the Sacroiliac joint: right side / left side Assessment and plan: Chronic neck pain secondary to cervical degenerative disc disease with facet arthropathy without myelopathy Recommendation of TPIs of bilateral superior & middle aspects of Trapezius Denies use of aspirin or other blood thinners All patient questions answered MAPS reviewed and it was appropriate. I have spent 31 minutes on patient care today. Dr Gomez was available by phone for the evaluation of this patient. The time was used to review the medical records including relevant urine studies and Prescription history (MAPs), review of the available imaging, evaluation and examination of the patient, coordination of care with the medical staff and if applicable referring physicians, as well as creation of the medical record Objective - Vital Signs Vital signs: Vital Signs Temp 98.0 F 04/14/21 11:30 Pulse 79 04/14/21 11:30 Resp 18 04/14/21 11:30 BP 117/63 04/14/21 11:30 Pulse Ox 98 04/14/21 11:30 PQRS Measure Charge Sheet Mode of Arrival: Ambulatory - Pain Location Neck Non-Pharmacological Interventions: Heat, Inactivity, Physical Therapy, Position/Reposition Pharmacological Interventions: Epidural PQRS Narrative: Smoking Status Never smoker Blood Pressure 117/63 Pain Intensity [Neck] 6 Scale Used Numeric (1 - 10) Hx Alcohol Use (MH) Yes: occ. Home Medications: Ambulatory Orders traZODone HCL 50 mg PO HS 09/06/16 DULoxetine HCL [Cymbalta] 90 mg PO DAILY 11/22/19 Cyanocobalamin [Vitamin B-12 Injection] 1,000 mcg SQ QMONTHLY 01/03/21 Medroxyprogesterone Acetate [Depo-Provera] 150 mg IM DIRECTED 01/03/21 buPROPion HCL [Wellbutrin XL] 300 mg PO DAILY 01/03/21 Acetaminophen [Tylenol Extra Strength] 1,000 mg PO DIRECTED PRN 03/06/21 Ibuprofen [Motrin Ib] 600 mg PO DIRECTED PRN 03/06/21 Cholecalciferol [Vitamin D3 (25 Mcg = 1000 Iu)] 25 mcg PO DAILY 04/09/21
== END ==
LOC: PNWHC3 11:22
PROVIDERS: ATTEND Physician Assistant Medical
DX: M50.30 Other cervical disc degeneration, unspecified cervical region (principal); M47.812 Spondylosis without myelopathy or radiculopathy, cervical region; Z91.013 Allergy to seafood
CPT/HCPCS: 99211

== ENCOUNTER 2021-05-06 07:33 | Day surgery (SDC) | payer BC ==
[2021-05-05 09:17] VITALS: BMI 34.0
[2021-05-06 08:01] VITALS: RESP 16; TEMP 98
[2021-05-06] MEDS ORDERED: ROPIVACAINE 5MG/ML 20ML VIAL ONE (08:27)
[2021-05-06] MEDS ORDERED: fentaNYL (PF) 50 MCG/ML 2 ML AMP ONE (08:27)
[2021-05-06] MEDS ORDERED: methylPREDNISolone ACETATE 40 MG/ML 1 ML VIAL ONE (08:27)
[2021-05-06] MEDS ORDERED: MIDAZOLAM 2 MG/2 ML VIAL ONE (08:27)
[2021-05-06] MEDS ORDERED: IV FLUID CONTINUATION 1,000 ML IV ONE (08:45)
--- NOTE | 2021-05-06 08:46 | P.PCN ---
Date of Procedure: 05/06/21 Procedure(s) Performed: . PROCEDURE 1. Trigger point injections bilateral trapezius muscles, and bilateral cervical paraspinal muscles.(total of 5 trigger point injected on the left side, trapezius and cervical paraspinal, and 4 trigger point injected on the right side, the trapezius muscle and cervical paraspinal muscles. PREOPERATIVE DIAGNOSIS: 1- Cervical Degenerative Disc Diseases 2-myofascial pain syndrom cervical area 3-cervical spondylosis with cervical Facet arthropathy without myelopathy POST op DIAGNOSIS: : 1- Cervical Degenerative Disc Diseases , 2-myofascial pain syndromes can area 3-,cervical spondylosis with cervical Facet arthropathy without myelopathy ANESTHESIA: Local anesthesia with lidocaine 1 % , and moderate sedation, with Versed 1 mg and Fentanyl 50 mcg. EBL 0 PROCEDURE INDICATION: The patient with neck pain and radiculitis unresponsive to conservative treatment consents for procedure. PROCEDURE DESCRIPTION / TECHNIQUE: The patient was seen and identified in the preoperative area. Risks, benefits, complications, including but not limited to infections ,bleeding , allergic reactions to the medications ,and not complete pain releife, and alternatives were discussed with the patient, the patient agreed to proceed with the procedure and signed the consent. sedations was used to degrees the patient's and anxiety, Patient taken to the procedure room sitting position , a cervical area prepped with chlorhexidine 3 done under sterile technique, using 25-gauge needle, 18 mL of ropivacaine 0.5% Extension with 40 mg of Depo-Medrol, 2 mL injected at each trigger point after negative aspiration, and there was no paresthesia during the injection, total of 5 trigger point injected on the left side cervical paraspinal muscles and left trapezius muscle, and 4 trigger point injected on the right side cervical paraspinal muscles and right trapezius muscle, patient tolerated the procedure well without any complications
[2021-05-06 09:02] VITALS: BP 99/66; PULSE 88
== END 2021-05-06 09:13 | disposition home or self-care (01) ==
LOC: ORPAIN 07:33
PROVIDERS: ATTEND Specialist
DX: M79.18 Myalgia, other site (principal); M50.10 Cervical disc disorder with radiculopathy, unspecified cervical region; M47.22 Other spondylosis with radiculopathy, cervical region; Z91.013 Allergy to seafood
CPT/HCPCS: 81025; 20553; J2250; J1030; J3010; J2795

== ENCOUNTER 2022-03-16 20:56 | Emergency (ER) | payer BC ==
[2022-03-16 21:14] VITALS: TEMP 98.3
[2022-03-16] MEDS ORDERED: SODIUM CHLORIDE 0.9% 1,000 ML IV STA (21:27)
--- NOTE | 2022-03-16 21:27 | ED ---
Neuro HPI - General Chief Complaint: Neuro Symptoms/Deficit Stated Complaint: numbness on left side face/head Time Seen by Provider: 03/16/22 21:27 Source: patient, RN notes reviewed, old records reviewed Mode of arrival: ambulatory Limitations: no limitations - History of Present Illness Is the patient presenting with stroke symptoms?: No -: minutes(s) Initial Comments: This is a 51-year-old female DF for evaluation patient does admit to anxiety. All numbness tingling arm numbness and tingling. Patient recently being treated for shoulder shoulder pain but states his symptoms little bit worse pain goes into her back and her shoulder to her neck. No chest pain no diaphoresis or shortness of breath no other neurological complaints. Maybe a little dizziness Location: left face, right face, left arm, right arm History of same: Yes Place: home Severity: mild Quality: weak, numb, tingling Improves With: time Worsens With: none Associated Symptoms: denies other symptoms Treatments Prior to Arrival: none - Related Data Home Medications: Home Medications Medication Instructions Recorded Confirmed traZODone HCL 50 mg PO HS 09/06/16 05/05/21 DULoxetine HCL [Cymbalta] 90 mg PO DAILY 11/22/19 05/05/21 Cyanocobalamin [Vitamin B-12 1,000 mcg SQ QMONTHLY 01/03/21 05/05/21 Injection] Medroxyprogesterone Acetate 150 mg IM DIRECTED 01/03/21 05/05/21 [Depo-Provera] buPROPion HCL [Wellbutrin XL] 300 mg PO DAILY 01/03/21 05/05/21 Acetaminophen [Tylenol Extra 1,000 mg PO DIRECTED PRN 03/06/21 05/05/21 Strength] Ibuprofen [Motrin Ib] 600 mg PO DIRECTED PRN 03/06/21 05/05/21 Cholecalciferol [Vitamin D3 (25 25 mcg PO DAILY 04/09/21 05/05/21 Mcg = 1000 Iu)] Baclofen [Lioresal] 10 mg PO TID 05/05/21 05/05/21 Allergies/Adverse Reactions: Allergies Allergy/AdvReac Type Severity Reaction Status Date / Time shellfish derived [Shellfish] Allergy Rash/Hives Verified 03/16/22 21:14 Review of Systems ROS Statement: Those systems with pertinent positive or pertinent negative responses have been documented in the HPI. ROS Other: All systems not noted in ROS Statement are negative. General Exam Limitations: no limitations General appearance: alert, in no apparent distress Head exam: Present: atraumatic, normocephalic, normal inspection Eye exam: Present: normal appearance, PERRL, EOMI. Absent: scleral icterus, conjunctival injection, periorbital swelling ENT exam: Present: normal exam, mucous membranes moist Neck exam: Present: normal inspection. Absent: tenderness, meningismus, lymphadenopathy Respiratory exam: Present: normal lung sounds bilaterally. Absent: respiratory distress, wheezes, rales, rhonchi, stridor Cardiovascular Exam: Present: regular rate, normal rhythm, normal heart sounds. Absent: systolic murmur, diastolic murmur, rubs, gallop, clicks GI/Abdominal exam: Present: soft, normal bowel sounds. Absent: distended, tenderness, guarding, rebound, rigid Extremities exam: Present: normal inspection, full ROM, normal capillary refill. Absent: tenderness, pedal edema, joint swelling, calf tenderness Back exam: Present: normal inspection Neurological exam: Present: alert, oriented X3, CN II-XII intact Psychiatric exam: Present: normal affect, normal mood Skin exam: Present: warm, dry, intact, normal color. Absent: rash Stroke MDM - Lab Data Result diagrams: 03/16/22 21:54 03/16/22 21:54 Lab Results 03/16/22 03/16/22 03/16/22 Range/Units 21:54 21:54 21:54 WBC 6.1 (3.8-10.6) k/uL RBC 4.57 (3.80-5.40) m/uL Hgb 14.9 (11.4-16.0) gm/dL Hct 43.0 (34.0-46.0) % MCV 94.0 (80.0-100.0) fL MCH 32.5 (25.0-35.0) pg MCHC 34.6 (31.0-37.0) g/dL RDW 12.4 (11.5-15.5) % Plt Count 365 (150-450) k/uL MPV 7.1 Neutrophils % 57 % Lymphocytes % 34 % Monocytes % 4 % Eosinophils % 2 % Basophils % 1 % Neutrophils # 3.4 (1.3-7.7) k/uL Lymphocytes # 2.0 (1.0-4.8) k/uL Monocytes # 0.3 (0-1.0) k/uL Eosinophils # 0.1 (0-0.7) k/uL Basophils # 0.1 (0-0.2) k/uL PT 9.7 (9.0-12.0) sec INR 0.9 (<1.2) APTT 25.2 (22.0-30.0) sec Sodium 140 (137-145) mmol/L Potassium 4.7 (3.5-5.1) mmol/L Chloride 106 (98-107) mmol/L Carbon Dioxide 24 (22-30) mmol/L Anion Gap 10 mmol/L BUN 11 (7-17) mg/dL Creatinine 0.66 (0.52-1.04) mg/dL Est GFR (CKD-EPI)AfAm >90 (>60 ml/min/1.73 sqM) Est GFR (CKD-EPI)NonAf >90 (>60 ml/min/1.73 sqM) Glucose 83 (74-99) mg/dL Calcium 8.7 (8.4-10.2) mg/dL Total Bilirubin 0.6 (0.2-1.3) mg/dL AST 50 H (14-36) U/L ALT 44 H (4-34) U/L Alkaline Phosphatase 94 (38-126) U/L Troponin I (0.000-0.034) ng/mL Total Protein 7.4 (6.3-8.2) g/dL Albumin 4.5 (3.5-5.0) g/dL 03/16/22 Range/Units 21:54 WBC (3.8-10.6) k/uL RBC (3.80-5.40) m/uL Hgb (11.4-16.0) gm/dL Hct (34.0-46.0) % MCV (80.0-100.0) fL MCH (25.0-35.0) pg MCHC (31.0-37.0) g/dL RDW (11.5-15.5) % Plt Count (150-450) k/uL MPV Neutrophils % % Lymphocytes % % Monocytes % % Eosinophils % % Basophils % % Neutrophils # (1.3-7.7) k/uL Lymphocytes # (1.0-4.8) k/uL Monocytes # (0-1.0) k/uL Eosinophils # (0-0.7) k/uL Basophils # (0-0.2) k/uL PT (9.0-12.0) sec INR (<1.2) APTT (22.0-30.0) sec Sodium (137-145) mmol/L Potassium (3.5-5.1) mmol/L Chloride (98-107) mmol/L Carbon Dioxide (22-30) mmol/L Anion Gap mmol/L BUN (7-17) mg/dL Creatinine (0.52-1.04) mg/dL Est GFR (CKD-EPI)AfAm (>60 ml/min/1.73 sqM) Est GFR (CKD-EPI)NonAf (>60 ml/min/1.73 sqM) Glucose (74-99) mg/dL Calcium (8.4-10.2) mg/dL Total Bilirubin (0.2-1.3) mg/dL AST (14-36) U/L ALT (4-34) U/L Alkaline Phosphatase (38-126) U/L Troponin I <0.012 (0.000-0.034) ng/mL Total Protein (6.3-8.2) g/dL Albumin (3.5-5.0) g/dL - NIH Stroke Scale 1a. Level of Consciousness: (0) alert 1b. LOC Questions: (0) answers correctly 1c. LOC Commands: (0) performs tasks correctly 2. Best Gaze: (0) normal 3. Visual: (0) no visual loss 4. Facial Palsy: (0) normal symmetrical movement 5a. Motor Arm Left: (0) no drift 5b. Motor Arm Right: (0) no drift 6a. Motor Leg Left: (0) no drift 6b. Motor Leg Right: (0) no drift 7. Limb Ataxia: (0) absent 8. Sensory: (0) normal 9. Best Language: (0) no aphasia 10. Dysarthria: (0) normal 11. Extinction/Inattention: (0) no abnormality - Thrombolytic Inclusion/Exclusion Thrombolytic Exclusion Criteria: Symptom Onset > 4.5 Hours - Medical Decision Making 51 female nonspecific symptoms appear seizure. No acute findings cause patient can be discharged home - Radiology Data Radiology results: report reviewed (CT brain CT chest negative for acute disease), image reviewed Past Medical History Past Medical History: Eye Disorder, Osteoarthritis (OA) Additional Past Medical History / Comment(s): Anemia-hx iron infusions-currently under control per pt, ovarian cysts, occasional episodes of chronic constipation (does not have hard BM's) but has slow motility, Insomnia, Gestational DM X3 pregnancies (progressively worse with each , 3rd needed insulin), low back, left knee, right foot/ankle pain, Strabismus. History of Any Multi-Drug Resistant Organisms: None Reported Past Surgical History: Adenoidectomy, Bariatric Surgery, Section, Cholecystectomy, Hernia Repair, Orthopedic Surgery, Tonsillectomy, Uterine A blation Additional Past Surgical History / Comment(s): Ange Orona @ [facility] 10/04, Section X1(2 vaginal births to follow), left knee scope (secondary to fall), laparoscopic endometriosis cauterization 1993, hiatal hernia repair 03/15. PAIN CLINIC PROCEDURES Past Anesthesia/Blood Transfusion Reactions: Postoperative Nausea & Vomiting (PONV) Past Psychological History: Anxiety, Depression Smoking Status: Never smoker Past Alcohol Use History: None Reported, Rare Past Drug Use History: None Reported - Past Family History Father Family Medical History: Coronary Artery Disease (CAD), Dementia, Diabetes Mellitus, Hypertension, Renal Disease Additional Family Medical History / Comment(s): Type 2 DM, at age 64 from DM related heart problems. Mother Family Medical History: Hypertension Additional Family Medical History / Comment(s): Diverticulitis. Course Vital Signs 03/16/22 03/16/22 03/16/22 21:10 22:24 22:41 Temperature 98.3 F Pulse Rate 77 65 65 Respiratory 20 16 16 Rate Blood Pressure 128/82 135/65 136/85 O2 Sat by Pulse 100 98 98 Oximetry - Reevaluation(s) Reevaluation #1: Medical record is reviewed Symptoms improved here in the ER Patient informed of results and questions answered Disposition Clinical Impression: Facial paresthesia, Dysphagia Disposition: HOME SELF-CARE Condition: Good Instructions (If sedation given, give patient instructions): Paresthesia (ED) Is patient prescribed a controlled substance at d/c from ED?: No Referrals: Silvino Hobson DO [Primary Care Provider] - 1-2 days Time of Disposition: 22:35
--- NOTE | 2022-03-16 21:56 | CT ---
EXAMINATION TYPE: CT brain wo con for TPA CT DLP: mGycm, Automated exposure control for dose reduction was used. DATE OF EXAM: 03/16/2022 9:52 PM COMPARISON: None. CLINICAL INDICATION:Female, 51 years old with history of Neuro deficit, acute, stroke suspected, Neur o deficit, acute, stroke suspected TECHNIQUE: Brain: Multiple axial CT images of the brain were obtained without IV contrast. Coronal and sagittal reformats reviewed. FINDINGS: Brain: Extra-axial spaces: No abnormal extra-axial fluid collections. Ventricular system: Within normal limits Cerebral parenchyma: No acute intraparenchymal hemorrhage or mass effect. The fernando-white junction is well differentiated. Cerebellum: Unremarkable. Mass effect: No evidence of midline shift. Intracranial vasculature: unremarkable Soft tissues: Normal. Calvarium/osseous structures: No depressed skull fracture. Paranasal sinuses and mastoid air cells: Mild scattered paranasal sinus disease. Visualized orbits: Orbital contents are intact. IMPRESSION: No acute intracranial process.
--- NOTE | 2022-03-16 21:59 | XR ---
EXAMINATION TYPE: XR chest 1V DATE OF EXAM: 03/16/2022 9:50 PM COMPARISON: None TECHNIQUE: XR chest 1V Frontal view of the chest. CLINICAL INDICATION:Female, 51 years old with history of altered mental status; FINDINGS: Lungs/Pleura: There is no evidence of pleural effusion, focal consolidation, or pneumothorax. Pulmonary vascularity: Unremarkable. Heart/mediastinum: Cardiomediastinal silhouette is unremarkable. Musculoskeletal: No acute osseous pathology. IMPRESSION: No acute cardiopulmonary disease/process.
--- NOTE | 2022-03-16 22:11 | CT ---
EXAMINATION TYPE: CT angio head neck CT DLP: 1998.6 mGycm, Automated exposure control for dose reduction was used. DATE OF EXAM: 03/16/2022 10:00 PM COMPARISON: CT head of the same date. CLINICAL INDICATION:Female, 51 years old with history of Neuro deficit, acute, stroke suspected; MERGED WITH [facility], TECHNIQUE: Axially acquired helical CT angiogram of the head and neck was obtained with contrast util izing 75 cc of Isovue-370 administered intravenously. Axial images are supplemented with 3D reconstru ctions which were post-processed at an independent workstation. NASCET criteria used. FINDINGS: CTA HEAD: No evidence of acute intracranial hemorrhage, mass effect, or midline shift. The ventricles, sulci, a nd cisterns are unremarkable. The visualized portions of the internal carotid arteries, middle cerebral arteries, anterior cerebral arteries, and posterior cerebral arteries are patent. The basilar and vertebral arteries are patent. CTA NECK: Right Carotid System: The common carotid artery and external carotid artery are patent. The carotid bifurcation demonstrate s no evidence of hemodynamically significant stenosis. The remaining portions of the internal carotid artery demonstrate normal size without significant narrowing. Left Carotid System: The common carotid artery and external carotid artery are patent. The carotid bifurcation demonstrate s no evidence of hemodynamically significant stenosis. The remaining portions of the internal carotid artery demonstrate normal size without significant narrowing. Vertebral arteries are patent without evidence hemodynamically significant stenosis. They are codomin ant. There is a bovine aortic arch. The origins of the great vessels are patent. No evidence of hemodynami jerzy significant stenosis. Prominent left supraclavicular lymph nodes with largest measuring 0.7 cm short axis. Additional few m ildly prominent bilateral anterior neck lymph nodes. IMPRESSION: 1. No evidence of dissection of the cervical internal carotid arteries or vertebral arteries or any e vidence of significant stenosis at the carotid bifurcations. 2. No evidence of high-grade stenosis or intracranial aneurysm.
[2022-03-16 22:26] VITALS: PULSE 65; RESP 16
[2022-03-16 22:42] VITALS: BP 136/85
[2022-03-16 22:46] LABS: INR 0.9 (<1.2); Partial Thromboplastin Time 25.2 sec (22.0-30.0); Prothrombin Time 9.7 sec (9.0-12.0)
[2022-03-16 22:49] LABS: Basophils # (A) 0.1 k/uL (0-0.2); Basophils % (A) 1 %; Eosinophils # (A) 0.1 k/uL (0-0.7); Eosinophils % (A) 2 %; HGB 14.9 gm/dL (11.4-16.0); Lymphocytes % (A) 34 %; MCH 32.5 pg (25.0-35.0); MCHC 34.6 g/dL (31.0-37.0); Mean Platelet Volume 7.1; Monocytes # (A) 0.3 k/uL (0-1.0); Monocytes % (A) 4 %; Neutrophils # (A) 3.4 k/uL (1.3-7.7); Neutrophils % (A) 57 %; Platelet Count 365 k/uL (150-450); RBC 4.57 m/uL (3.80-5.40); RDW 12.4 % (11.5-15.5); WBC 6.1 k/uL (3.8-10.6)
[2022-03-16 22:51] LABS: ALT 44 U/L (4-34); African American GFR (CKD) >90 (>60 ml/min/1.73 sqM); Anion Gap 10 mmol/L; Blood Urea Nitrogen 11 mg/dL (7-17); Calcium 8.7 mg/dL (8.4-10.2); Carbon Dioxide 24 mmol/L (22-30); Chloride 106 mmol/L (98-107); Glucose 83 mg/dL (74-99); Non-African American GFR(CKD) >90 (>60 ml/min/1.73 sqM); Sodium 140 mmol/L (137-145); Total Bilirubin 0.6 mg/dL (0.2-1.3)
[2022-03-16 22:56] LABS: Total Protein 7.4 g/dL (6.3-8.2)
[2022-03-16 22:57] LABS: AST 50 U/L (14-36); Albumin 4.5 g/dL (3.5-5.0); Alkaline Phosphatase 94 U/L (38-126); Potassium 4.7 mmol/L (3.5-5.1)
== END 2022-03-16 22:42 | disposition home or self-care (01) ==
LOC: EC 20:56
DX: R20.2 Paresthesia of skin (principal); R13.10 Dysphagia, unspecified; M19.90 Unspecified osteoarthritis, unspecified site; F41.9 Anxiety disorder, unspecified; F32.A Depression, unspecified; Z79.1 Long term (current) use of non-steroidal anti-inflammatories (NSAID); Z91.013 Allergy to seafood
CPT/HCPCS: 99284 ×2; 36415; 80053; 84484; 85025; 85610; 85730; 71045; 70496; 70450; 70498; Q9967

== ENCOUNTER → 2024-03-01 | Outpatient (CLI) | payer BC ==
--- NOTE | 2024-03-01 19:23 | MR ---
MRI CERVICAL SPINE: CLINICAL HISTORY: Head and neck pain that radiates into left shoulder for years. Cervicalgia. TECHNIQUE: Multiplanar, multisequence imaging of the cervical spine is performed without IV contrast. COMPARISON: None. FINDINGS: Sagittal images of the cervical spine show the craniocervical junction to appear within nor mal limits. The cervical and upper thoracic spinal cord is normal in course, caliber, and signal. V ertebral alignment is anatomic. The vertebral body and intravertebral disk heights are normal. The bone marrow signal intensity is within normal limits. Axial images show C2-C3 level to appear within normal limits. Axial images at C3-C4 level show broad-based right paracentral disc protrusion mildly effacing the an terior thecal sac, patent bilateral neural foramina. Axial images at C4-C5 level appear within normal limits. Axial images at C5-C6 level show broad-based posterior disc protrusion effacing anterior thecal sac n early up to ventral surface of spinal cord and causing mild left greater than right bilateral neural foraminal narrowing. Axial images at C6-C7 levels from broad-based posterior disc protrusion mildly facing anterior thecal sac with mild bilateral neural foraminal narrowing. Axial images at C7-T1 level appear within normal limits. IMPRESSION: Multilevel degenerative changes in the cervical spine most prominent at C5-C6 level as de tailed above. [facility], , 03/01/2024 7:21 PM
== END | disposition home or self-care (01) ==
LOC: RADMRIMAIN 18:32
PROVIDERS: ATTEND Family Medicine
DX: M47.812 Spondylosis without myelopathy or radiculopathy, cervical region (principal)
CPT/HCPCS: 72141